=== PATIENT | male | born 1965 | race Caucasian/White ===

== ENCOUNTER 2024-04-17 10:28 | Inpatient (IN) | payer OTHER, SELFPAY ==
[2024-04-17] VITALS (9 sets, daily range): BP systolic 82–134; BP diastolic 58–101; PULSE 100–111; RESP 16–21; TEMP 36.1–37.1; O2SAT 89–100; BMI 28.4
--- NOTE | 2024-04-17 10:29 | PD.EDSYNC ---
ED Syncope RME/HPI General Chief Complaint: Syncope / Near Syncope Stated Complaint: SHOCK Time Seen by Provider: 04/17/24 10:34 Arrival date/time: 04/17/24 10:28 RME / HPI RME / HPI narrative: DR. GAONA MAIN ED EVALUATION: 58 year old male presents to the Emergency Department [facility] from home complaint of syncopal episode, witnessed at home by his mother that lasted about 2-3 minutes. Per EMS, when they arrived patient was more alert but very pale as a ghost. Per EMS, blood pressure was 60/40 and satting at 89% on room air. En route per EMS, GCS of 15. No fever or chills reported, here 98 F rectally. Blood glucose 294 here. Here blood pressure at arrival was 82/58. Patient was incontinent, has brown stools over his clothes. PMHx: Hypercholesterolemia, anxiety, TIA and diabetes. No known allergies. Social Hx: No tobacco, alcohol, or substance use. Related Data Home Medications ?Medication ?Instructions ?Recorded ?Confirmed Propranolol Hcl 40 mg PO DAILY ##0 06/15/12 dextromethorphan polistirex 30 30 mg PO Q12HR PRN COLD SYMPTOMS 03/14/13 mg/5 mL oral susp ext.release 12hr ##0 (Delsym) metformin 1,000 mg tablet 500 mg PO BIDWM Diabetes #0 tabs 03/14/13 (Glucophage) propranolol 10 mg tablet 60 mg PO HS 05/15/20 05/15/20 Previous Rx's ?Medication ?Instructions ?Recorded lorazepam 1 mg tablet 1 mg PO QDAY PRN anxiety #4 tabs 09/21/20 Allergies Allergy/AdvReac Type Severity Reaction Status Date / Time guaifenesin (From Robitussin) Allergy Severe Swelling Verified 04/17/24 10:39 of Lip/Tongue/Throat Review of Systems Review of Systems Systems Reviewed: All systems reviewed, normal except as documented Narrative Review of Systems: GEN: No fever, no chills, no weight loss EYES: No discharge, no visual changes, no pain HEENT: No ear pain, no congestion, no sore throat PULM: No shortness of breath, no cough, no congestion CV: No chest pain, no dyspnea on exertion, no palpitations GI: No nausea, no vomiting, no diarrhea, no pain, no constipation : No frequency, no urgency and no dysuria MUSC/SKEL: No joint pain, no back pain SKIN: No rash PSYCH: No hallucinations, no depression HEME/LYMPH: No easy bleeding or bruising tendencies NEURO: No weakness, no headache, + syncopal episode (see HPI) Past Medical History Past Medical History NEUROLOGIC: Positive Transient Ischemic Attacks (TIA) and Multiple Sclerosis (QUESTIONABLE MS PER MRI IN 2004?) CARDIAC: Positive Hypertension ENDOCRINE: Positive Diabetes Mellitus Type 2 PSYCHO/SOCIAL: Positive Anxiety Social History SMOKING STATUS: Never smoker SUBSTANCE USE: does not use ALCOHOL: Never ED Exam Narrative Physical exam: GENERAL APPEARANCE: alert and oriented x 4, well-developed, well-nourished, no acute distress VITALS: All vitals were reviewed and the pulse ox is % on room air, which is normal according to my interpretation. HEENT: Normocephalic, atraumatic; pupils equal, round, reactive to light; EOMI; mucous membranes pink, moist; oropharynx clear NECK: Supple LUNGS: CTABL; no wheezes, no rales, no rhonchi HEART: Regular rate, regular rhythm; normal S1, S2; no murmurs ABDOMEN: non distended; normal BS; soft, no tenderness, no guarding, no rebound; no masses, no organomegaly, no hernia BACK: no CVA tenderness EXTREMITIES: atraumatic; no edema NEUROLOGIC: awake; alert and oriented x4; cranial nerves II-XII grossly intact; no focal sensory or motor deficits PSYCHIATRIC: appropriate mood and affect SKIN: warm, dry, normal color; no rashes Course Quality Measures none Orders Category Date Time Status Bedside COVID-19 Antigen Test NOW Care 04/17/24 10:37 Active Bedside COVID-19 Antigen Test NOW Care 04/17/24 11:29 Completed Bedside Influenza A&B Antigen Test NOW Care 04/17/24 10:37 Completed Bedside Influenza A&B Antigen Test NOW Care 04/17/24 11:29 Completed COVID-19 Screening Questionnaire NOW Care 04/17/24 14:13 Active Pressure Sealer And Tester NOW Care 04/17/24 10:37 Active Decision to Admit X1 Care 04/17/24 14:13 Completed EKG (ED ONLY) *Do not use* NOW Care 04/17/24 10:[address] head/brain wo con Stat Exams 04/17/24 11:32 Completed EKG (ED Only) Stat Exams 04/17/24 10:37 Draft XR chest 1V portable Stat Exams 04/17/24 10:37 Completed A1C [Glycohemoglobin w (eAG)] Stat Lab 04/17/24 10:50 Completed Alcohol, Blood Medical Stat Lab 04/17/24 10:50 Completed B-Type Natriuretic Peptide Stat Lab 04/17/24 10:50 Completed CBC Stat Lab 04/17/24 10:50 Completed Comprehensive Metabolic Panel Stat Lab 04/17/24 10:50 Completed Drug Screen,Urine Stat Lab 04/17/24 12:48 Completed Lipase Stat Lab 04/17/24 10:50 Completed Magnesium Stat Lab 04/17/24 10:50 Completed Partial Thromboplastin Time Stat Lab 04/17/24 10:50 Completed Prothrombin Time with INR Stat Lab 04/17/24 10:50 Completed Troponin I Stat Lab 04/17/24 10:50 Completed UA, C/S IF [Urinalysis, C/S if Indicated] Stat Lab 04/17/24 12:48 Completed Aspirin Chew Med 04/17/24 14:51 Discontinued 324 mg PO X1 ONE Sodium Chloride 0.9% 1000 ml [Ns] 1,000 ml Med 04/17/24 11:28 Discontinued IV 999 mls/hr Vital Signs Vital signs: Vital Signs Temperature 98.8 F 04/17/24 10:35 Pulse Rate 110 H 04/17/24 10:35 Respiratory Rate 17 04/17/24 10:35 Blood Pressure 82/58 L 04/17/24 10:35 Pulse Oximetry (%) 94 L 04/17/24 10:35 Oxygen Delivery Method Oxy Mask 04/17/24 10:35 Oxygen Flow Rate 5 04/17/24 10:35 Syncope MDM Narrative MDM Narrative:: IStella am scribing for and in the presence of Dr. Gaona. Patient data External records reviewed:: [facility] previous records (Reviewed last ED visit dated 10/10/20 discharged with the following: Anxiety) and EMS form Clinical information provided by:: patient, EMS and family Social determinants that could affect healthcare access:: none Patient has the following chronic illnesses:: Hypercholesterolemia, anxiety, TIA and diabetes. No known allergies. How is presenting disease/condition affected by chronic disease/condition?: exacerbated by Evaluation data The following diagnostics were reviewed and interpreted by me:: lab results, radiology exam(s) and EKG tracing(s) (EKG#1: EKG at 1041 hours. Interpreted by me: sinus tachycardia, rate 109) Lab and/or radiology exams considered but not ordered:: none Interpretation Summary: Elevated troponin, 0.100. RADIOLOGY Procedure(s): CT head/brain wo con Accession Number(s): [id number] cc: Humphrey Rudd MD; NO PRIMARY/FAMILY,PHYSICIAN; Nayely Gaona MD~ Examination: CT brain head without contrast. 2-D sagittal coronal reconstructions Date and time of exam:April 17, 2024 1335 hrs. Comparison October 09, 2020 Indications: Onset syncopal episode beginning this morning CTDI: vol (mGy):49.1 DLP: (mGycm):1002 Technique: Multiple CT axial sections of the brain have been obtained, 5 mm slice thickness. Contrast has not been administered. 2-D sagittal, coronal reconstructions have been obtained Low dose protocols were performed. One or more of the following dose reduction techniques were used; automated exposure control, adjustment of the mA and/or KV according to patient size, use of iterative reconstruction technique. Findings: No significant ventricular enlargement. Intra-axial or extra-axial hemorrhage density is not seen. No mass effect or midline shift Basal cisterns are not remarkable. Fourth ventricle is midline. Cranial vault intact. Fairly prominent chronic microvascular white matter change Impression: Negative for acute hemorrhage, mass effect or midline shift Clinical correlation advised and follow-up accordingly Dictated By: Humphrey Rudd MD Procedure(s): XR chest 1V portable Accession Number(s): [id number] cc: Humphrey Rudd MD; NO PRIMARY/FAMILY,PHYSICIAN; Nayely Gaona MD~ Examination: AP chest single view Technique: AP portable semiupright chest single view Exam date and time: April 17, 2024 at 10:58 AM Indications: Chest pain today. Findings: Normal heart size No pneumonia or pulmonary edema Mild osteopenia Impression: No active disease Dictated By: Humphrey Rudd MD Medications / Prescriptions Medications or Prescriptions considered but not ordered:: none Medication administrations:: Medication Administration History Acetaminophen (Acetaminophen 325 Mg Tablet) 650 mg PO Q6H PRN PRN Reason: Fever >100 or pain 1-3 Stop: 05/17/24 15:26 Hydrocodone Bitart/Acetaminophen (Hydrocodone/Apap 5/325 Tablet) 1 tab PO Q4HR PRN PRN Reason: PAIN SCALE 4-6 (Moderate Stop: 04/22/24 15:26 Dextrose (Dextrose 50%-Water Inj 50 Ml Syringe) 25 ml IV Q15MIN PRN PRN Reason: BG 50-70 responsive npo pt Stop: 05/17/24 15:26 Dextrose (Dextrose 50%-Water Inj 50 Ml Syringe) 50 ml IV Q15MIN PRN PRN Reason: BG <50 OR BG <70 & pt unresponsive Stop: 05/17/24 15:26 Glucagon (Glucagon Inj 1 Mg Vial) 1 mg IM Q15MIN PRN PRN Reason: BG <70, and no IV access Heparin Sodium (Porcine) (Heparin Sod Inj 5000 Unit/Ml Vial) 5,000 unit SC Q12HR FINN Stop: 05/01/24 15:29 Last Admin: 04/17/24 16:07 Dose: 5,000 unit Documented By: AA Co-signed By: LIDA Magnesium Sulfate (Magnesium Sulfate Ivpb) 2 gm in 50 mls @ 25 mls/hr IV X1 ONE Stop: 04/17/24 18:00 Last Admin: 04/17/24 16:20 Dose: 25 mls/hr Documented By: YUSUF Sodium Chloride (Ns) 1,000 mls @ 75 mls/hr IV .[id number] [facility] Stop: 04/18/24 05:23 Last Admin: 04/17/24 16:15 Dose: 75 mls/hr Documented By: YUSUF Insulin Human Lispro (Insulin Lispro (Admelog) 1 Unit/0.01 Ml Unit) 0 unit SC AC [facility]; Protocol Stop: 05/17/24 16:59 Ipratropium [place] (Ipratropium Rt 0.5 Mg/ 2.5 Ml Nebu) 0.5 mg INH Q2HR PRN PRN Reason: SHORTNESS OF BREATH OR WHEEZE Stop: 05/17/24 15:24 Ondansetron HCl (Ondansetron Inj 2 Mg/Ml Inj 2 Ml) 4 mg IV Q6H PRN; Protocol PRN Reason: NAUSEA OR VOMITING Stop: 05/17/24 15:26 Discontinued Medications Aspirin (Aspirin 81 Mg Chew) 324 mg PO X1 ONE Stop: 04/17/24 14:52 Last Admin: 04/17/24 16:07 Dose: 324 mg Documented By: YUSUF Sodium Chloride (Ns) 1,000 mls @ 999 mls/hr IV .Q1H1M ONE Stop: 04/17/24 12:28 Last Infusion: 04/17/24 12:46 Dose: Infused Documented By: Admin: 04/17/24 11:45 Dose: 999 mls/hr Documented By: YUSUF Pantoprazole Sodium (Pantoprazole Inj 40 Mg Vial) 40 mg IVP X1 ONE Stop: 04/17/24 15:37 Last Admin: 04/17/24 16:08 Dose: 40 mg Documented By: YUSUF see above Consultations Consultation(s) initiated? (list below): Yes Consultation #1 (Physician, Specialty, Details): Discussed test HPI, PMHx, lab, radiology results and/or management with hospitalist. Will admit for further evaluation and management. Accepts patient for admission. Time: 14:00 Diagnosis Syncope Differential Diagnosis: syncope due to orthostatic hypotension, vasovagal syncope and dehydration Most likely diagnosis given after review of the tests above:: Hypotension Elevated troponin Syncopal episode Admission Indicated Admission indicated?: indicated Admission Request Was there a request for admission?: Yes Admission Attestation Admission request attestation: Discussed case with [] from Hospitalist service regarding admission. Discussed patients ED course, exam findings, labs, and radiology results. The Hospitalist [agrees,declines] to accept the patient for admission. Disposition Plan Disposition Plan: Admit Discharge Plan Plan Patient Disposition: Admit Acute Care w/in Hospital Problem List Clinical Impression: Hypotension, Elevated troponin, Syncopal episodes
--- NOTE | 2024-04-17 10:37 | EKG_ITS ---
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
--- NOTE | 2024-04-17 10:37 | XR_ITS ---
Examination: AP chest single view Technique: AP portable semiupright chest single view Exam date and time: April 17, 2024 at 10:58 AM Indications: Chest pain today. Findings: Normal heart size No pneumonia or pulmonary edema Mild osteopenia Impression: No active disease
[2024-04-17 11:02] LABS: Basophils # (Auto) 0.1 Thou/mm3 (0.0-0.2); Basophils % (Auto) 0 % (0-2.5); Eosinophils # (Auto) 0.2 Thou/mm3 (0.0-0.5); Eosinophils % (Auto) 1 % (0-10); Hematocrit 43.9 % (41.0-53.0); Hemoglobin 14.4 g/dL (13.5-16.0); Immature Granulocytes % (Auto) 1 % (0-0); Immature Granulocytes Auto 0.19 Thou/mm3 (0.00-0.00); Lymphocytes # (Auto) 2.4 Thou/mm3 (1.0-4.8); Lymphocytes % (Auto) 13 % (10-50); Mean Corpuscular HGB Conc 32.8 g/dl (31.0-37.0); Mean Corpuscular Hemoglobin 28.6 pg (25.0-35.0); Mean Corpuscular Volume 87 fL (80-100); Monocytes # (Auto) 0.8 Thou/mm3 (0.0-0.8); Monocytes % (Auto) 4 % (0-12); Neutrophils # (Auto) 15.2 Thou/mm3 (1.8-7.7); Neutrophils % (Auto) 80 % (37-80); Nucleated Red Blood Cell % 0 /100 WBC (0); Platelet Count 221 Thou/mm3 (140-440); RDW Standard Deviation 45.1 fL (35.1-43.9); Red Blood Count 5.04 Miln/mm3 (4.50-5.90); White Blood Count 18.9 Thou/mm3 (3.8-10.6)
[2024-04-17 11:15] LABS: B-Type Natriuretic Peptide < 20 pg/mL (0-100)
--- NOTE | 2024-04-17 11:17 | PC.NURSE ---
Patient to presents to ED via ambulance from home with c/o witnessed syncope episode at home by mother. Patient also hypotensive on site BP of 60/40, blood sugar 348, IVF 200ml infused by district recruiter. Patient was incontinent of urine and stool, patient denies hx of seizures/ activity. Patient stated attempted to get out of bed and past out, does not recall events prior and did c/o headache and nausea now. Patient updated with plan of care and call light is placed within reach.
[2024-04-17 11:18] LABS: Alanine Aminotransferase 32 U/L (10-49); Albumin/Globulin Ratio 1.4 (1.2-2.2); Alcohol, Blood Medical < 3.0 mg/dL (0-10.0); Alkaline Phosphatase 116 U/L (46-116); Anion Gap 12 (7-16); Aspartate Amino Transferase 26 U/L (0-34); BUN/Creatinine Ratio 10 Ratio (12-20); Bilirubin,Total 0.5 mg/dL (0.3-1.2); Blood Urea Nitrogen 15 mg/dL (9-23); Calcium 8.6 mg/dL (8.3-10.6); Calcium (Corrected) 8.6 mg/dL (8.5-10.1); Carbon Dioxide 19.3 mMol/L (20.0-31.0); Chloride 107 mMol/L (98-107); Creatinine (Component) 1.5 mg/dL (0.6-1.3); Estimated Creatinine Clearance 61.3 mL/min (>60); Globulin 2.8 gm/dL (2.3-3.5); Glucose 384 mg/dL (74-106); Lipase 41 U/L (12-53); Magnesium 1.7 mg/dL (1.6-2.6); Osmolality,Calculated 292 (275-295); Potassium 4.6 mMol/L (3.4-5.1); Sodium 138 mMol/L (136-145); Total Protein 6.8 gm/dL (5.7-8.2); eGFR 54 See Note
[2024-04-17 11:19] LABS: Partial Thromboplastin Time 22.4 Seconds (22.0-36.0); Prothrombin Time 11.1 Seconds (9.0-12.2)
--- NOTE | 2024-04-17 11:32 | XR_ITS ---
Examination: CT brain head without contrast. 2-D sagittal coronal reconstructions Date and time of exam:April 17, 2024 1335 hrs. Comparison October 09, 2020 Indications: Onset syncopal episode beginning this morning CTDI: vol (mGy):49.1 DLP: (mGycm):1002 Technique: Multiple CT axial sections of the brain have been obtained, 5 mm slice thickness. Contrast has not been administered. 2-D sagittal, coronal reconstructions have been obtained Low dose protocols were performed. One or more of the following dose reduction techniques were used; automated exposure control, adjustment of the mA and/or KV according to patient size, use of iterative reconstruction technique. Findings: No significant ventricular enlargement. Intra-axial or extra-axial hemorrhage density is not seen. No mass effect or midline shift Basal cisterns are not remarkable. Fourth ventricle is midline. Cranial vault intact. Fairly prominent chronic microvascular white matter change Impression: Negative for acute hemorrhage, mass effect or midline shift Clinical correlation advised and follow-up accordingly
[2024-04-17] MEDS: SODIUM CHLORIDE 0.9% 1000 ML 1,000 ML 999 ML IV (11:45)
[2024-04-17 13:32] LABS: Collection Type, Urine Clean Catch
[2024-04-17 13:43] LABS: Bacteria,Urine Rare; Bilirubin,Urine Negative (Negative); Blood,Urine Negative (Negative); Clarity,Urine Clear (Clear/Hazy); Color,Urine Lt-Yellow (Lt Yel-Yel); Culture Indicated,Urine Not Indicated; Glucose, Urine 3+ (Negative); Hyaline Casts,Urine < 1 /hpf (0-1); Ketones,Urine Negative (Negative); Leukocyte Esterase,Urine Negative (Negative); Nitrite,Urine Negative (Negative); Protein,Urine 1+ (Neg - Trace); RBC,Urine 3 /hpf (0-3); Specific Gravity,Urine 1.011 (1.001-1.035); Squamous Epithelial Cell,Urine < 1 /hpf (0-5); Urobilinogen,Urine Negative mg/dL (0.0-1.0); WBC,Urine 6 /hpf (0-5)
[2024-04-17 13:48] LABS: Amphetamine/Methamp Scrn,U Negative (Negative); Barbiturate Screen,Urine Positive (Negative); Benzodiazepines Screen,Urine Negative (Negative); Benzoylecgonine Screen, Ur Negative (Negative); Fentanyl Screen,Urine Negative (Negative); Opiate Screen,Urine Negative (Negative); THC Screen,Urine Negative (Negative)
[2024-04-17 13:51] LABS: Glucose Estimated Average 180 mg/dL (80-131); Hemoglobin A1C 7.9 % Hgb (4.8-6.0)
--- NOTE | 2024-04-17 15:28 | ECHO_ITS ---
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 16 - 28 cm?/m? M-MODE Aortic Root Diameter MM 2.8 cm LA Systolic Diameter MM 3.6 cm LA Ao Ratio MM 1.3 AV Cusp Separation MM 1.9 cm DOPPLER AV Peak Velocity 100.0 cm/s AV Peak Gradient 4.0 mmHg AV Mean Gradient 2.0 mmHg AV Velocity Time Integral 17.7 cm LVOT Peak Velocity 76.9 cm/s LVOT Peak Gradient 2.4 mmHg LVOT Velocity Time Integral 17.0 cm LVOT Cardiac Index 1627.7 cm?/min?m? AV Area Cont Eq vti 2.4 cm? AV Area Cont Eq pk 1.9 cm? MV Area PHT 5.0 cm? Mitral E Point Velocity 53.4 cm/s Mitral A Point Velocity 64.0 cm/s Mitral E to A Ratio 0.8 LV E' Lateral Velocity 8.7 cm/s Mitral E to LV E' Lateral Ratio 6.1 LV E' Septal Velocity 9.7 cm/s Mitral E to LV E' Septal Ratio 5.5 TR Peak Velocity 189.0 cm/s TR Peak Gradient 14.3 mmHg PV Peak Velocity 84.2 cm/s PV Peak Gradient 2.8 mmHg FINDINGS Left Ventricle Normal left ventricular size, wall thickness, systolic function with no obvious regional wall motion abnormalities. Normal left ventricular diastolic filling pattern for age. The ejection fraction is visually estimated at 55-60 %. Right Ventricle The right ventricle is normal in size and systolic function. Left Atrium The left atrium is normal by two-dimensional, color flow and Doppler imaging with no structural abnormalities, no thrombus formation present. Right Atrium The right atrium is normal by two-dimensional imaging, color flow and Doppler imaging with no structural abnormalities, no thrombus formation present. Atrial Septum The interatrial septum appears normal with no evidence of a shunt. Aorta The aorta is normal by two-dimensional, color flow and Doppler interrogation. Mitral Valve The mitral valve is normal by two-dimensional, color flow and Doppler interrogation. There is trace mitral valve regurgitation, stenosis or prolapse. Aortic Valve The aortic valve is trileaflet and normal by two-dimensional, color flow and Doppler interrogation. There is no significant aortic valve regurgitation. Tricuspid Valve The tricuspid valve is normal by two-dimensional, color flow and Doppler interrogation. There is trace tricuspid valve regurgitation. Pulmonic Valve The pulmonic valve is not well visualized. There is no significant pulmonic valve regurgitation. Vessels The pulmonary artery appears normal. The inferior vena cava pulmonary and hepatic veins appear normal. Pericardium The pericardium is normal by two-dimensional imaging. There is no significant pericardial effusion. CONCLUSIONS Indication: Syncope Normal LV size and function. Estimated EF 55-60 %. Mildy dilated RV and normal RV systolic function. Trace MR and TR. Paco Chapin (Electronically Signed) Final Date: 18 April 2024 13:37
--- NOTE | 2024-04-17 15:33 | PD.RESHP ---
Documentation for date of: 04/17/24 HPI History of Present Illness History of present illness: Tony is a 58-year-old male with a past medical history of [id number] diabetes type 2, previous syncope, panic disorder, hyperlipidemia who is here at [facility] on 04/17/2024 for an evaluation of syncopal episode. Patient reports that he woke up this morning and he went to go have a bowel movement after breakfast and says that while he left the bathroom he started to get dizzy. He says the next thing he knew that he was on the floor and that there was a bunch of EMS personnel around him. Patient does endorse a history of study and syncope, last time this happening was about 10 years ago. He also endorses that he had an episode 1 time in which she fell and passed out while walking on the sidewalk. Denies a history of sudden cardiac in family history. He says that he has had a previous cardiac workup including stress test which was negative and Holter monitoring which was negative as well. He does say he takes a number of medicines but is unable to remember which ones he takes including some for anxiety. He endorses not having a lot of oral intake lately, skye that he has not ate this morning. He says he is unsure why he passed out. He denies having a history of cardiac murmurs or arrhythmias. He denies anyone in his family having similar symptoms to this. He does say he has tremors constantly. He says that when he fell he also hit his head and scraped up his knee. Says his bowel movements are regular and has some daily. Denies recent travel anywhere. Endorses some rib pain from his fall. ED course: He arrived to the ED with a blood pressure of 82/58, heart rate of 110, afebrile, respiratory rate of 17, and was saturating 89% per EMS. She was worked up and was found to have sodium of 138, potassium 4.6, BUN/creatinine 15 and 1.5 respectively, glucose 384, hemoglobin 14, white count 19, magnesium 1.7, AST ALT 26 and 32 respectively, troponin 0.1, BMP unremarkable, urine showed +3 glucose and 6 white cells, U tox showed barbiturates. Head CT was unremarkable for acute hemorrhage, mass effect or midline shift. Chest x-ray was negative pulmonary edema or pneumonia. EKG did show sinus tachycardia rate of 109. He was put on oxygen mask, given ASA 325, 1 L bolus. Medicine was consulted and patient was admitted to floors. Past medical history: As above Surgeries: Some knee operation possible repair of meniscus or ligament Allergies: Robitussin Meds: Patient is unsure of what medicines he takes, he endorses not taking propranolol, however he does take medicines for anxiety, takes metformin and some form of a statin Family history: Dad of lung cancer and heart attack at some point when he was 78. His mother is healthy and still living at 88 with no medical problems. He says diabetes runs in part of his family. He says his aunt had a stroke. No other medical history Social history: Born in [facility] [place]. Lived throughout the [place] lived in [place] at some point and then moved back to [place]. 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 He got at some point for 4 years and is not currently. Has no kids. Has chewed tobacco since he was 13, however quit for 4 years when he was . He said he used to use a can a day. He has used cocaine before in the past 1-2 times in the 90s. Has not drink alcohol since 2010 when he was diagnosed with diabetes. He smokes cigarettes at some point but mainly chewed tobacco. Review of Systems Review of Systems Narrative Review of Systems: Constitutional: No fever, chills, fatigue, weakness, weight loss HEENT: No eye pain, vision loss, ear pain, hearing loss, dysphagia, Cardiovascular: No chest pain, palpitations, edema, pain with walking Respiratory: No cough, shortness of breath, wheezing GI: No NVD, abdominal pain, constipation, blood in stool, loss of appetite, heartburn Extremities: No presence of pitting edema MSK: No back pain, joint pain, joint swelling, + Rib pain Neuro: No dizziness, numbness, weakness, headaches, seizures, positive, positive for syncope tremors Psych: +anxiety Exam Vital Signs Temp Pulse Resp BP Pulse Ox O2 Del Method O2 Flow Rate 98.8 F 109 H 19 130/81 99 Oxy Mask 4 04/17/24 13:44 04/17/24 13:44 04/17/24 13:44 04/17/24 13:44 04/17/24 13:44 04/17/24 13:44 04/17/24 13:44 Narrative Exam General: AAOx3, anxious male, multiple tattoos present on his body including his leg back and arm HEENT: Dry mucous membranes, conjunctiva clear, EOMI, PERRLA, pupillary reflex intact bilaterally, poor dentition likely related to tobacco chewing Cardiovascular: S1, S2, radial pulses +2 bilat, Tachycardia Pulmonary: CTAB bilat no cough, no wheezing GI: No tenderness to light or deep palpitation, no guarding, rigidity, rebound tenderness or distension Extremities: No presence of trace or pitting edema in lower extremities bilaterally, dorsalis pedis pulses +2 bilaterally, leg tattoo Neuro: AAOx3, pupillary reflex intact bilaterally resting tremor present Psych: Anxious Results: Labs 04/18/24 05:30 04/18/24 05:30 Labs: Short CBC 04/17/24 Range/Units 10:50 WBC 18.9 H (3.8-10.6) Thou/mm3 Hgb 14.4 (13.5-16.0) g/dL Hct 43.9 (41.0-53.0) % Plt Count 221 (140-440) Thou/mm3 BMP 04/17/24 10:50 Sodium 138 Potassium 4.6 Chloride 107 Carbon Dioxide 19.3 L BUN 15 Creatinine 1.5 H Glucose 384 H Calcium 8.6 Cardiac Enzymes 04/17/24 Range/Units 10:50 Troponin I 0.100 H* (0.0-0.045) ng/mL Liver Function 04/17/24 Range/Units 10:50 Total Bilirubin 0.5 (0.3-1.2) mg/dL AST 26 (0-34) U/L ALT 32 (10-49) U/L Alkaline Phosphatase 116 (46-116) U/L Albumin 4.0 (3.5-5.0) gm/dL Urine 04/17/24 Range/Units 12:48 Urine Color Lt-Yellow (Lt Yel-Yel) Urine Clarity Clear (Clear/Hazy) Urine pH 6.0 (5.0-7.0) Ur Specific [place] 1.011 (1.001-1.035) Urine Protein 1+ A (Neg - Trace) Urine Glucose (UA) 3+ A (Negative) Quality Measures Quality Measures none Medications Home Medications and Allergies Home Medications ?Medication ?Instructions ?Recorded ?Confirmed ?Type Propranolol Hcl 40 mg PO DAILY ##0 06/15/12 History dextromethorphan polistirex 30 30 mg PO Q12HR PRN COLD SYMPTOMS 03/14/13 History mg/5 mL oral susp ext.release 12hr ##0 (Delsym) metformin 1,000 mg tablet 500 mg PO BIDWM Diabetes #0 tabs 03/14/13 History (Glucophage) propranolol 10 mg tablet 60 mg PO HS 05/15/20 05/15/20 History Allergies Allergy/AdvReac Type Severity Reaction Status Date / Time guaifenesin (From Robitussin) Allergy Severe Swelling Verified 04/17/24 10:39 of Lip/Tongue/Throat Visit Medications Discontinued Medications Aspirin (Aspirin 81 Mg Chew) 324 mg PO X1 ONE Stop: 04/17/24 14:52 Sodium Chloride (Ns) 1,000 mls @ 999 mls/hr IV .Q1H1M ONE Stop: 04/17/24 12:28 Last Infusion: 04/17/24 12:46 Dose: Infused Assessment & Plan Plan Assessment Tony is a 58-year-old male with a past medical history of iev-iteniev-sckemdylc diabetes type 2, previous syncope, panic disorder, hyperlipidemia who is admitted for syncopal episode. #Syncope #History of previous syncope DDx: Hypovolemia, orthostatic hypotension, cardiac arrhythmia, POTS, aortic stenosis, vasovagal, medication side effect Patient says that he has a history of syncope and has randomly passed out before Denies history of sudden cardiac in family Also says that he has seen a food truck caterer before and has had a negative stress test and a normal Holter Patient does not know exactly what medicines he arms, however he is tested positive for barbiturates Patient does take a number of medicines including some better psych related, could be medicine side effect Patient does seem to be a bit volume depleted in addition to having an MATTIE so hypovolemia could be a cause of this EKG does show sinus tach, compensatory response to hypotension Patient did experience hypotension as low as 60 systolic while in the ER and EMS Was not able to appreciate cardiac murmur on physical exam Patient would likely benefit from loop recorder outpatient Plan: ? Cardio consulted, appreciate recs ? Echo ? Keep magnesium and potassium above 2 and 4 respectively ? Orthostatic vitals ? Holding on resuming psych meds at this time ? Neurology consult #Elevated Troponin DDx: NSTEMI type I vs II Patient denies having chest pain Likely related to demand ischemia, however will continue to trend Denies history of previous cardiac arrest, ischemic heart disease Initial troponin 0.1 Plan: ?Continue to trend troponin every 6 hours until they peak #MATTIE DDx: Prerenal, intrinsic, postrenal Likely patient is experiencing prerenal as creatinine is 1.5 baseline seems to be 0.7 Seems to be dehydrated, was given 1 L in ER Plan: ? Urine sodium and creatinine ? Encourage oral intake ? 1 bag NS 75 cc an hour ? Avoid nephrotoxic agents ? Renally dose medicines #Zmd-iufsqse-lromouaxu diabetes type 2 Plan: ? A1c ? SSI ? Hypoglycemic protocol in place ? Blood glucose checks A with meals #Hyperlipidemia Plan: ? Follow-up lipid panel ? Follow-up with med rec to start home medicine #History of panic disorder #? History of PTSD U tox shows positive barbiturates Plan: ? Will consider giving something for sleep, and also will wait for patient to have his med rec #Health Maintenance Disposition: Telemetry DVT prophylaxis: Heparin every 12 hours GI prophylaxis: Protonix Diet: Carb low CODE STATUS: Full Patient seen and care discussed with my senior resident, Dr. Maravilla, and my attending physician, Dr. John Iverson, PGY-1 Attending Provider Attestation/Addendum I reviewed labs, imaging, EKG, home medications and prior available records. Face to face evaluation was performed by me. I have personally examined the patient and discussed assessment and plan with the IM team. I reviewed the resident note and agree with the plan with exceptions as below. Syncope Acute hypotension Non-STEMI MATTIE Leukocytosis, possibly reactive in the setting of dehydration Ordered CT head: Negative for acute changes Hold psych medications Continue IV hydration Obtain echocardiogram Trend troponin Obtain orthostatic vital signs Consult cardiology given the possible cardiac causes and elevated troponin Consult neurology given the possible neurologic syncope in setting of seizure Monitor kidney function. Avoid nephrotoxins. Renally dosed medications Trend WBC
[2024-04-17] MEDS: ASPIRIN 81 MG CHEW 324 MG PO (16:07)
[2024-04-17] MEDS: HEPARIN SOD INJ 5000 UNIT/ML VIAL SC (16:07)
[2024-04-17] MEDS: PANTOPRAZOLE INJ 40 MG VIAL IVP (16:08)
[2024-04-17] MEDS: SODIUM CHLORIDE 0.9% 1000 ML 1,000 ML 75 ML IV (16:15)
[2024-04-17] MEDS: Magnesium Sulfate 2 GM Ivpb 2 GM/50 ML BAG IV (16:20)
[2024-04-17 16:35] LABS: Cardiac Risk Estimate 3.8 RATIO (4.0-6.7); Cholesterol 107 mg/dL (132-200); HDL Cholesterol 28 mg/dL (40-60); LDL Cholesterol,Calculated 33 mg/dL (0-130); Triglycerides 230 mg/dL (30-150)
[2024-04-17 17:27] LABS: Troponin I 1.712 ng/mL (0.0-0.045)
--- NOTE | 2024-04-17 17:33 | PC.NURSE ---
Report given to Farzaneh TALAVERA, patient will be transferred to room 262.
--- NOTE | 2024-04-17 17:46 | ESCONSULT_ITS ---
HPI Data of Consult Consult date: 04/17/24 Requesting Physician: Remy Lopez MD Primary Care Provider: Physician No Primary/Family Consult Narrative Reason for consult: Syncope History of present illness: A 58-year-old male with a past medical history of type 2 diabetes mellitus uncontrolled, essential hypertension, hyperlipidemia, anxiety, panic disorder, history of tremors, depression presented to the emergency department for further patient was seen after an episode of syncope. As per patient he was doing well until this morning when he woke up in the due to his monitors and went to the restroom for bowel movement. After he finishes bowel movement patient stood up and walked towards his bedroom and after a few steps he felt slightly dizzy but immediately passed out and the next thing he could remember was known people around him. He did hurt his knee, back probably in the fall but does not remember anything else. History definitely concerning for syncope. Patient apparently had 1 episode of syncope 10 to 15 years ago almost but has not did but the exact details of his syncope. Patient did have some workup done by cardiology including stress test and a Holter test which was apparently negative. Also patient is on anxiety medications along with couple of other medications for depression and also tremors. Patient denies any chest pain chest pressure or shortness of breath orthopnea or PND any kind of palpitations. Any recurrent fever or chills or nausea or vomiting. Upon further questioning patient has been not been taking good care of his diabetes recently and has increased frequency of urination over the last few weeks and urinates more than 12 or does not times a day. His blood sugars on arrival was also elevated in the range of 384. Patient was also hypertensive on arrival with a blood pressure of 82/58 mmHg and heart rate of 120 bpm indicating the patient probably was dehydrated. Rest of the history from the excellent documentation of Dr. Alexandra davenport ED course: He arrived to the ED with a blood pressure of 82/58, heart rate of 110, afebrile, respiratory rate of 17, and was saturating 89% per EMS. She was worked up and was found to have sodium of 138, potassium 4.6, BUN/creatinine 15 and 1.5 respectively, glucose 384, hemoglobin 14, white count 19, magnesium 1.7, AST ALT 26 and 32 respectively, troponin 0.1, BMP unremarkable, urine showed +3 glucose and 6 white cells, U tox showed barbiturates. Head CT was unremarkable for acute hemorrhage, mass effect or midline shift. Chest x-ray was negative pulmonary edema or pneumonia. EKG did show sinus tachycardia rate of 109. He was put on oxygen mask, given ASA 325, 1 L bolus. Medicine was consulted and patient was admitted to floors. Past medical history: As above Surgeries: Some knee operation possible repair of meniscus or ligament Allergies: Robitussin Meds: Patient is unsure of what medicines he takes, he endorses not taking propranolol, however he does take medicines for anxiety, takes metformin and some form of a statin Family history: Dad of lung cancer and heart attack at some point when he was 78. His mother is healthy and still living at 88 with no medical problems. He says diabetes runs in part of his family. He says his aunt had a stroke. No other medical history Social history: Born in [facility] [place]. Lived throughout the [place] lived in [place] at some point and then moved back to [place]. 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 He got at some point for 4 years and is not currently. Has no kids. Has chewed tobacco since he was 13, however quit for 4 years when he was . He said he used to use a can a day. He has used cocaine before in the past 1-2 times in the 90s. Has not drink alcohol since 2010 when he was diagnosed with diabetes. He smokes cigarettes at some point but mainly chewed tobacco. cc:: cc: Remy Lopez MD Review of Systems Review of Systems Systems Reviewed: All systems reviewed, normal except as documented Meds Home Medications and Allergies Home Medications ?Medication ?Instructions ?Recorded ?Confirmed ?Type Propranolol Hcl 40 mg PO DAILY ##0 06/15/12 History dextromethorphan polistirex 30 30 mg PO Q12HR PRN COLD SYMPTOMS 03/14/13 History mg/5 mL oral susp ext.release 12hr ##0 (Delsym) metformin 1,000 mg tablet 500 mg PO BIDWM Diabetes #0 tabs 03/14/13 History (Glucophage) propranolol 10 mg tablet 60 mg PO HS 05/15/20 1 History Allergies Allergy/AdvReac Type Severity Reaction Status Date / Time guaifenesin (From Robitussin) Allergy Severe Swelling Verified 04/17/24 10:39 of Lip/Tongue/Throat Exam Vital Signs Temp Pulse Resp BP Pulse Ox O2 Del Method O2 Flow Rate 98.3 F 110 H 18 118/98 H 98 Nasal Cannula 1 04/17/24 16:09 04/17/24 16:09 04/17/24 16:09 04/17/24 16:09 04/17/24 16:09 04/17/24 16:09 04/17/24 16:09 Narrative Exam General: Alert and oriented x3. In no acute distress.obese Eyes: Pupils are equal and reactive to light bilaterally. HEENT: Atraumatic, normocephalic. No JVD noted. Mucosa moist. oor dentition Cardiovascular: Normal S1 and S2. Normal rate and regular rhythm. No murmurs appreciated. No peripheral pitting edema noted. Respiratory: No respiratory distress. Lungs are clear to auscultation bilaterally. No wheezing or crackles heard. Abdomen: Soft, nontender, nondistended. Skin: No rash. Warm to touch. Musculoskeletal: No gross injuries. Able to move all 4 extremities. Neuro: Alert and oriented x3. No focal neuro deficits. Psych: Normal affect and mood Results Labs 04/17/24 10:50 04/17/24 10:50 Labs: Short CBC 04/17/24 Range/Units 10:50 WBC 18.9 H (3.8-10.6) Thou/mm3 Hgb 14.4 (13.5-16.0) g/dL Hct 43.9 (41.0-53.0) % Plt Count 221 (140-440) Thou/mm3 BMP 04/17/24 10:50 Sodium 138 Potassium 4.6 Chloride 107 Carbon Dioxide 19.3 L BUN 15 Creatinine 1.5 H Glucose 384 H Calcium 8.6 Cardiac Enzymes 04/17/24 04/17/24 Range/Units 10:50 16:52 Troponin I 0.100 H* 1.712 H* D (0.0-0.045) ng/mL Liver Function 04/17/24 Range/Units 10:50 Total Bilirubin 0.5 (0.3-1.2) mg/dL AST 26 (0-34) U/L ALT 32 (10-49) U/L Alkaline Phosphatase 116 (46-116) U/L Albumin 4.0 (3.5-5.0) gm/dL Urine 04/17/24 Range/Units 12:48 Urine Color Lt-Yellow (Lt Yel-Yel) Urine Clarity Clear (Clear/Hazy) Urine pH 6.0 (5.0-7.0) Ur Specific [place] 1.011 (1.001-1.035) Urine Protein 1+ A (Neg - Trace) Urine Glucose (UA) 3+ A (Negative) Assessment and Plan Additional Assessment & Plan Additional Plan: A 58-year-old male with a past medical history of type 2 diabetes mellitus uncontrolled, hyperlipidemia, anxiety, panic disorder, history of tremors, depression presented to the emergency department for further patient was seen after an episode of syncope. 1. Syncope-appears to be vasovagal syncope in the setting of dehydration but will need to rule out all other causes 2. Mildly elevated troponin-mostly NSTEMI type II versus type I 3. Acute kidney injury 4. Uncontrolled diabetes mellitus -possible HONK-hyperosmolar hyperglycemic nonketotic state 5. Hyperlipidemia 6. Obesity 7. Anxiety 8. Depression 9. Tremors Syncope-unclear etiology for the syncope and appears to be vasovagal after bowel movement and also in the setting of hypotension on arrival with a history of uncontrolled diabetes mellitus recently with increased frequency of urination and possible poor oral intake. Will need to rule out other etiologies of the syncope including any arrhythmias and recommend to continue telemetry for now. Patient apparently had some workup with stress test and Holter monitoring as outpatient previously which was negative but was more than 10 years to 15 years ago. Will need to rule out neurogenic and cardiogenic causes of syncope. Unlikely ischemic cause but patient troponins continue to elevate 1.7 from 0.1. Echo ordered to rule out any structural heart abnormalities including any valve or abnormalities causing syncope. Troponin elevation-NSTEMI type I versus type II. Patient troponin was 0.1 which improved to 1.7. Appears to be type II as patient did not have any complaints including any chest pain or chest pressure but did have a syncope. EKG showed sinus tachycardia with minimal ST depression but no other acute ST-T changes suggestive of STEMI. Recommend to start the heparin drip once a CT head is performed and there is no evidence of any hemorrhage and no other contraindications for anticoagulation. Recommend aspirin statin and beta-heather cardioselective. At the cardia ordered to rule out any regional wall motion abnormalities and also evaluate LV function RV function. Patient does have significant cardiac risk factors including diabetes mellitus hyperlipidemia and family history and would need ischemic evaluation to rule out any underlying CAD. Uncontrolled diabetes mellitus type 2 Upon further questioning patient has been not been taking good care of his diabetes recently and has increased frequency of urination over the last few weeks and urinates more than 12 or does not times a day. His blood sugars on arrival was also elevated in the range of 384. Patient was also hypotensive on arrival with a blood pressure of 82/58 mmHg and heart rate of 120 bpm indicating the patient probably was dehydrated. Recommend IV fluids and strict diabetes control including insulin therapy if required. Acute kidney injury-appears to be prerenal from dehydration and hypotension continue IV fluids for now continue to monitor the blood pressure. Management of rest of the medical conditions as per primary team and other consultants. Thank you for the consult and allowing me to participate in the care of the patient. Cardiology will continue to follow. Paco Chapin M.D. Interventional Cardiology
[2024-04-17] MEDS: INSULIN LISPRO (AdmeLOG) 1 UNIT/0.01 ML UNIT SC (18:43)
[2024-04-17 23:51] LABS: Troponin I 1.766 ng/mL (0.0-0.045)
[2024-04-18] VITALS (9 sets, daily range): BP systolic 54–153; BP diastolic 38–113; PULSE 83–107; RESP 14–23; TEMP 36.1–36.7; O2SAT 96–98; BMI 28.8
--- NOTE | 2024-04-18 00:27 | RESP.EEG ---
EEG has been completed and is ready for MD interpretation
[2024-04-18 06:49] LABS: Basophils % (Auto) 0 % (0-2.5); Eosinophils # (Auto) 0.2 Thou/mm3 (0.0-0.5); Eosinophils % (Auto) 2 % (0-10); Hematocrit 39.2 % (41.0-53.0); Hemoglobin 12.9 g/dL (13.5-16.0); Immature Granulocytes % (Auto) 1 % (0-0); Immature Granulocytes Auto 0.05 Thou/mm3 (0.00-0.00); Lymphocytes # (Auto) 1.8 Thou/mm3 (1.0-4.8); Lymphocytes % (Auto) 17 % (10-50); Mean Corpuscular HGB Conc 32.9 g/dl (31.0-37.0); Mean Corpuscular Hemoglobin 28.4 pg (25.0-35.0); Mean Corpuscular Volume 86 fL (80-100); Monocytes # (Auto) 0.7 Thou/mm3 (0.0-0.8); Monocytes % (Auto) 7 % (0-12); Neutrophils # (Auto) 8.1 Thou/mm3 (1.8-7.7); Neutrophils % (Auto) 74 % (37-80); Nucleated Red Blood Cell % 0 /100 WBC (0); Platelet Count 162 Thou/mm3 (140-440); RDW Standard Deviation 43.4 fL (35.1-43.9); Red Blood Count 4.54 Miln/mm3 (4.50-5.90); White Blood Count 10.9 Thou/mm3 (3.8-10.6)
[2024-04-18 07:00] LABS: Alanine Aminotransferase 29 U/L (10-49); Albumin, Serum 3.8 gm/dL (3.5-5.0); Albumin/Globulin Ratio 1.5 (1.2-2.2); Alkaline Phosphatase 103 U/L (46-116); Anion Gap 7 (7-16); Aspartate Amino Transferase 21 U/L (0-34); BUN/Creatinine Ratio 14 Ratio (12-20); Bilirubin,Total 0.4 mg/dL (0.3-1.2); Blood Urea Nitrogen 14 mg/dL (9-23); Calcium 8.3 mg/dL (8.3-10.6); Calcium (Corrected) 8.5 mg/dL (8.5-10.1); Carbon Dioxide 24.4 mMol/L (20.0-31.0); Chloride 111 mMol/L (98-107); Estimated Creatinine Clearance 92.5 mL/min (>60); Globulin 2.5 gm/dL (2.3-3.5); Glucose 179 mg/dL (74-106); Magnesium 1.9 mg/dL (1.6-2.6); Osmolality,Calculated 287 (275-295); Phosphorous 2.2 mg/dL (2.4-5.1); Sodium 142 mMol/L (136-145); Thyroid Stimulating Hormone 0.71 uIU/mL (0.55-4.78); Total Protein 6.3 gm/dL (5.7-8.2); eGFR > 60 See Note
[2024-04-18 07:01] LABS: Prothrombin Time 11.3 Seconds (9.0-12.2)
[2024-04-18 07:10] LABS: Troponin I 0.981 ng/mL (0.0-0.045)
[2024-04-18 07:27] LABS: Glucose Estimated Average 183 mg/dL (80-131)
[2024-04-18] MEDS: NAPH,KPH MBDB 1 PACKET (1.5 GM) 2 PACKET PO (08:17)
[2024-04-18] MEDS: Magnesium Sulfate 1 gm Ivpb 1 GM/100 ML BAG IV (08:17)
[2024-04-18] MEDS: Heparin/D5w 25K 250 ML Ivpb 25,000 UNIT/250 ML BAG 10.029 UNIT IV (08:18)
[2024-04-18] MEDS: ASPIRIN EC 81 MG TABEC PO (08:18)
[2024-04-18] MEDS: METOPROLOL SUCCINATE XL 25 MG TABCR 50 MG PO (08:18)
[2024-04-18] MEDS: INSULIN LISPRO (AdmeLOG) 1 UNIT/0.01 ML UNIT SC ×3 (08:29→17:35)
--- NOTE | 2024-04-18 09:45 | ESPR_ITS ---
Documentation for date of: 04/18/24 Subjective Subjective Interval history: 04/18/2024: Pt examined at bedside today. No acute overnight events, telemetry reviewed, pt had max 116 HR and rate is in 90s-100s. Pt reports he is doing okay, says he slept okay. He still does not remember what medicines he takes at home. He denies having CP, palpitations or SOB. No other complaints at this time. BUN/Cr 14 and 1.0 respectively, potassium 4, mg 1.9, wbc 11, hgb 13. blood pressure stable, HR 90s. Exam Vital Signs Temp Pulse Resp BP Pulse Ox O2 Del Method O2 Flow Rate 98.0 F 83 17 132/97 H 96 Nasal Cannula 1 04/18/24 08:00 04/18/24 08:18 04/18/24 08:00 04/18/24 08:18 04/18/24 08:00 04/18/24 08:00 04/18/24 08:00 Narrative Exam General: AAOx3, anxious male, multiple tattoos present on his body including his leg back and arm HEENT: Moist mucous membranes, conjunctiva clear, EOMI, PERRLA, pupillary reflex intact bilaterally, poor dentition likely related to tobacco chewing Cardiovascular: S1, S2, radial pulses +2 bilat, RRR Pulmonary: CTAB bilat no cough, no wheezing GI: No tenderness to light or deep palpitation, no guarding, rigidity, rebound tenderness or distension Extremities: No presence of trace or pitting edema in lower extremities bilaterally, dorsalis pedis pulses +2 bilaterally, leg tattoo Neuro: AAOx3, pupillary reflex intact bilaterally resting tremor present Psych: Anxious Objective Labs 04/19/24 05:39 04/19/24 05:39 Labs: Laboratory Results - last 24 hr 04/17/24 04/17/24 04/17/24 10:50 12:48 16:52 WBC 18.9 H RBC 5.04 Hgb 14.4 Hct 43.9 MCV 87 MCH 28.6 MCHC 32.8 RDW Std Deviation 45.1 H Plt Count 221 Neut % (Auto) 80 Lymph % (Auto) 13 [place] % (Auto) 4 Eos % (Auto) 1 Baso % (Auto) 0 Neut # (Auto) 15.2 H Lymph # (Auto) 2.4 [place] # (Auto) 0.8 Eos # (Auto) 0.2 Baso # (Auto) 0.1 Immature Gran # (Auto) 0.19 H Absolute Nucleated RBC 0.00 Immature Gran % 1 H Nucleated RBC % 0 PT 11.1 INR 1.0 APTT 22.4 Sodium 138 Potassium 4.6 Chloride 107 Carbon Dioxide 19.3 L Anion Gap 12 BUN 15 Creatinine 1.5 H Estim Creat Clear Calc 61.3 eGFR 54 L BUN/Creatinine Ratio 10 L Glucose [address] Glu mg/dL 180 H Hemoglobin A1c 7.9 H Calculated Osmolality 292 Calcium 8.6 Corrected Calcium 8.6 Phosphorus Magnesium 1.7 Total Bilirubin 0.5 AST 26 ALT 32 Alkaline Phosphatase 116 Troponin I 0.100 H* 1.712 H* D B-Natriuretic Peptide < 20 Total Protein 6.8 Albumin 4.0 Globulin 2.8 Albumin/Globulin Ratio 1.4 Triglycerides 230 H Cholesterol 107 L LDL Cholesterol, Calc 33 HDL Cholesterol 28 L Cholesterol/HDL Ratio 3.8 L Lipase 41 TSH Ur Collection Type Clean Catch Urine Color Lt-Yellow Urine Clarity Clear Urine pH 6.0 Ur Specific [place] 1.011 Urine Protein 1+ A Urine Glucose (UA) 3+ A Urine Ketones Negative Urine Blood Negative Urine Nitrite Negative Urine Bilirubin Negative Urine Urobilinogen (Auto) Negative Ur Leukocyte Esterase Negative Urine RBC 3 Urine WBC 6 H Ur Squamous Epith Cells < 1 Urine Bacteria Rare Hyaline Casts < 1 Ur Culture Indicated? Not Indicated Urine Opiates Screen Negative Urine Fentanyl Screen Negative Ur Barbiturates Screen Positive A U Amphetamin/Meth Scrn Negative U Benzodiazepines Scrn Negative U Cocaine Metab Screen Negative U Marijuana (THC) Screen Negative Ethyl Alcohol < 3.0 04/17/24 04/18/24 22:47 05:30 WBC 10.9 H D RBC 4.54 Hgb 12.9 L Hct 39.2 L MCV 86 MCH 28.4 MCHC 32.9 RDW Std Deviation 43.4 Plt Count 162 D Neut % (Auto) 74 Lymph % (Auto) 17 [place] % (Auto) 7 Eos % (Auto) 2 Baso % (Auto) 0 Neut # (Auto) 8.1 H Lymph # (Auto) 1.8 [place] # (Auto) 0.7 Eos # (Auto) 0.2 Baso # (Auto) 0.0 Immature Gran # (Auto) 0.05 H Absolute Nucleated RBC 0.00 Immature Gran % 1 H Nucleated RBC % 0 PT 11.3 INR 1.0 APTT Sodium 142 Potassium 4.0 D Chloride 111 H Carbon Dioxide 24.4 Anion Gap 7 BUN 14 Creatinine 1.0 D Estim Creat Clear Calc 92.5 eGFR > 60 BUN/Creatinine Ratio 14 Glucose [address] Glu mg/dL 183 H Hemoglobin A1c 8.0 H Calculated Osmolality 287 Calcium 8.3 Corrected Calcium 8.5 Phosphorus 2.2 L Magnesium 1.9 Total Bilirubin 0.4 AST 21 ALT 29 Alkaline Phosphatase 103 Troponin I 1.766 H* 0.981 H* D B-Natriuretic Peptide Total Protein 6.3 Albumin 3.8 Globulin 2.5 Albumin/Globulin Ratio 1.5 Triglycerides Cholesterol LDL Cholesterol, Calc HDL Cholesterol Cholesterol/HDL Ratio Lipase TSH 0.71 Ur Collection Type Urine Color Urine Clarity Urine pH Ur Specific [place] Urine Protein Urine Glucose (UA) Urine Ketones Urine Blood Urine Nitrite Urine Bilirubin Urine Urobilinogen (Auto) Ur Leukocyte Esterase Urine RBC Urine WBC Ur Squamous Epith Cells Urine Bacteria Hyaline Casts Ur Culture Indicated? Urine Opiates Screen Urine Fentanyl Screen Ur Barbiturates Screen U Amphetamin/Meth Scrn U Benzodiazepines Scrn U Cocaine Metab Screen U Marijuana (THC) Screen Ethyl Alcohol Quality Measures Quality Measures none Assessment & Plan Assessment Current Active Medications: Generic Name Dose Route Start Last Admin Trade Name Freq PRN Reason Stop Dose Admin Acetaminophen 650 mg 04/17/24 15:27 Acetaminophen 325 Mg Tablet PO 05/17/24 15:26 Q6H PRN Fever >100 or pain 1-3 Hydrocodone Bitart/Acetaminophen 1 tab 04/17/24 15:27 Hydrocodone/Apap 5/325 Tablet PO 04/22/24 15:26 Q4HR PRN PAIN SCALE 4-6 (Moderate Aspirin 81 mg 04/18/24 09:00 04/18/24 08:18 Aspirin Ec 81 Mg Tabec PO 05/18/24 08:59 81 mg QDAY FINN Administration Atorvastatin Calcium 40 mg 04/18/24 21:00 Atorvastatin Calcium 20 Mg Tablet PO 05/18/24 20:59 HS FINN Dextrose 25 ml 04/17/24 15:27 Dextrose 50%-Water Inj 50 Ml Syringe IV 05/17/24 15:26 Q15MIN PRN BG 50-70 responsive npo pt Dextrose 50 ml 04/17/24 15:27 Dextrose 50%-Water Inj 50 Ml Syringe IV 05/17/24 15:26 Q15MIN PRN BG <50 OR BG <70 & pt unresponsive Glucagon 1 mg 04/17/24 15:27 Glucagon Inj 1 Mg Vial IM Q15MIN PRN BG <70, and no IV access Heparin Sodium/Dextrose 25,000 unit in 250 mls @ 10.029 mls/hr 04/18/24 07:45 04/18/24 08:18 Heparin In D5w Ivpb IV 05/02/24 07:44 11 units/kg/hr .Q24H FINN 10.029 mls/hr Administration Protocol 11 UNITS/KG/HR Insulin Human Lispro 0 unit 04/17/24 17:00 04/18/24 08:29 Insulin Lispro (Admelog) 1 Unit/0.01 Ml Unit SC 05/17/24 16:59 1 unit AC FINN Administration Protocol Ipratropium [place] 0.5 mg 04/17/24 15:25 Ipratropium Rt 0.5 Mg/ 2.5 Ml Nebu INH 05/17/24 15:24 Q2HR PRN SHORTNESS OF BREATH OR WHEEZE Metoprolol Succinate 50 mg 04/18/24 09:00 04/18/24 08:18 Metoprolol Succinate Xl 25 Mg Tabcr PO 05/18/24 08:59 50 mg QDAY FINN Administration Ondansetron HCl 4 mg 04/17/24 15:27 Ondansetron Inj 2 Mg/Ml Inj 2 Ml IV 05/17/24 15:26 Q6H PRN NAUSEA OR VOMITING Protocol Plan Assessment Tony is a 58-year-old male with a past medical history of [id number] diabetes type 2, previous syncope, panic disorder, hyperlipidemia who is admitted for syncopal episode. #Syncope #History of previous syncope DDx: Hypovolemia, orthostatic hypotension, cardiac arrhythmia, POTS, aortic stenosis, vasovagal, medication side effect Patient says that he has a history of syncope and has randomly passed out before Denies history of sudden cardiac in family Also says that he has seen a electrician helper powerhouse before and has had a negative stress test and a normal Holter Patient does not know exactly what medicines he arms, however he is tested positive for barbiturates Patient does take a number of medicines including some better psych related, could be medicine side effect Patient does seem to be a bit volume depleted in addition to having an MATTIE so hypovolemia could be a cause of this EKG does show sinus tach, compensatory response to hypotension Patient did experience hypotension as low as 60 systolic while in the ER and EMS Was not able to appreciate cardiac murmur on physical exam Patient would likely benefit from loop recorder outpatient Patient most likely yesterday had hypovolemic related syncope However considering history patient would likely benefit from cardiac cath due to patient's risk factors of diabetes hyperlipidemia and previous syncope Initial echo read shows mild dilatation of right ventricle and RA, left ventricle looks fine Will follow up with orthostatic vitals Will follow up with med rec as this could be a contributing factor as a side effect with syncope Plan: ? Cardio consulted, appreciate recs ? Follow-up on official echo read ? Keep magnesium and potassium above 2 and 4 respectively ? Holding on resuming psych meds at this time ? Neurology consult, apprec recs #NSTEMI type II, likely related to demand ischemia, resolved #? CAD DDx: NSTEMI type I vs II Patient denies having chest pain Likely related to demand ischemia, however will continue to trend Denies history of previous cardiac arrest, ischemic heart disease Troponin peaked at 1.76 Due to risk factors including HLD, DM2, previous syncope, there may be a component of ischemic heart disease HEART score: 5 points -> Moderate score risk of major adverse cardiac events in patients w/ chest pain within 6 weeks, however this pt did not have chest pain [place] Risk Score: 9.4% 10-year risk of MN or for this patient, 13% average 10-year risk of MN or Patient likely had NSTEMI type II related to demand ischemia, in addition to patient not having ST changes, however will need to further workup Will do cardiac cath tomorrow Plan: ? Continue heparin drip ? N.p.o. at midnight ? Cardiac cath ? Continue with aspirin and Lipitor 40 mg Hs #MATTIE, resolved DDx: Prerenal, intrinsic, postrenal Likely patient is experiencing prerenal as creatinine is 1.5 baseline seems to be 0.7 Seems to be dehydrated, was given 1 L in ER Cr 1.0 today Plan: ? Encourage oral intake ? Avoid nephrotoxic agents ? Renally dose medicines #Cbd-ovjfimn-[id number] diabetes type 2 A1c 8 We will adjust blood sugar management after cath Plan: ? SSI ? Hypoglycemic protocol in place ? Blood glucose checks with meals #Hyperlipidemia Total 107, LDL 33 Plan: ? Continue with Lipitor 40 mg at bedtime #History of panic disorder #? History of PTSD U tox shows positive barbiturates Will follow-up with med rec Plan: ? Awaiting med rec #Health Maintenance Disposition: Telemetry DVT prophylaxis: Heparin drip GI prophylaxis: Protonix Diet: N.p.o. at midnight CODE STATUS: Full Patient seen and care discussed with my senior resident, Dr. Gómez, and my attending physician, Dr. John Iverson, PGY-1 Attending Provider Attestation/Addendum I reviewed labs, imaging, EKG, home medications and prior available records. Face to face evaluation was performed by me. I have personally examined the patient and discussed assessment and plan with the IM team. I reviewed the resident note and agree with the plan with exceptions as below. Syncope Acute hypotension Non-STEMI MATTIE Leukocytosis, possibly reactive in the setting of dehydration Ordered CT head: Negative for acute changes Hold psych medications Obtain echocardiogram Trend troponin: Uptrending. Discussed with cardiology: Start aspirin and heparin drip. Plan for cardiac catheterization Obtain orthostatic vital signs Consult cardiology given the possible cardiac causes and elevated troponin Consult neurology given the possible neurologic syncope in setting of seizure Monitor kidney function: Creatinine improved. Avoid nephrotoxins. Renally dosed medications Trend WBC: Downtrending
--- NOTE | 2024-04-18 11:13 | PC.SS ---
Addendum entered by Alina Hines 04/18/24 13:53: Patient requested clothing due to his being soiled. Wet End Operator provided L longsleeve shirt, M basketball shorts, and XL briefs at bedside. Original Note: Wet End Operator met with patient at bedside to complete initial assessment. Patient confirmed demographic information. Patient confirmed alt. decision maker is his sibling Stormy Arteaga [phone]. Patient reported being independent with ADL completion and ambulation as well. Pharmacy: [facility] and receives medication through mail. PCP: Dr. Carias. ? Discharge plan: Home, Uber transportation needed at discharge. Alt. Decision maker: Sibling Stormy Arteaga [phone]
[2024-04-18 14:34] LABS: Partial Thromboplastin Time 34.1 Seconds (22.0-36.0)
[2024-04-18] MEDS: HEPARIN SOD INJ 5000 UNIT/ML VIAL 4000 UNIT IV (15:40)
--- NOTE | 2024-04-18 16:10 | PD.RESPRO ---
Documentation for date of: 04/18/24 Subjective Subjective Interval history: 04/18: No acute overnight events patient is seen and examined at bedside currently patient is saturating on room air. He complains of chest pain on the left side that has improved but still feels the pain site which is not radiating. Patient states lately he has been on a lot of stress. pt is informed he will bee to undergo cardiac catherization tomorrow. Risks and benefits have been explained to him and he agrees to undergo procedure. Current blood pressure is 151/113 and HR is 99. coagulation studies are within normal limits. Hgb is 8.0. Troponins trend is 0.100-> 1.712 -> 1.766 -> 0.981. Exam Vital Signs Temp Pulse Resp BP Pulse Ox O2 Del Method O2 Flow Rate 97.0 F 92 19 138/99 H 96 Room Air 1 04/18/24 12:00 04/18/24 14:21 04/18/24 12:00 04/18/24 14:21 04/18/24 12:00 04/18/24 12:00 04/18/24 08:00 Narrative Exam GENERAL: A&Ox3 . Awake, Not in acute distress NEURO: no focal neurological deficits HEENT: Atraumatic, Normocephalic. mucous membranes moist. Eyes open, symmetrical, & clear, poor oral and dentation HEART: Normal Heart Sounds LUNGS: Clear to auscultation with no wheezing or crackles. ABDOMEN: soft, non-distended, non-tender, bowel sounds heard, no guarding or rebound tenderness SKIN: No Rash or ecchymoses EXTREMITIES: No edema, tenderness, able to move all 4 extremities, pedal pulses palpated Objective Labs 04/18/24 05:30 04/18/24 05:30 Labs: Laboratory Results - last 24 hr 04/17/24 04/17/24 04/17/24 10:50 16:52 22:47 WBC RBC Hgb Hct MCV MCH MCHC RDW Std Deviation Plt Count Neut % (Auto) Lymph % (Auto) [place] % (Auto) Eos % (Auto) Baso % (Auto) Neut # (Auto) Lymph # (Auto) [place] # (Auto) Eos # (Auto) Baso # (Auto) Immature Gran # (Auto) Absolute Nucleated RBC Immature Gran % Nucleated RBC % PT INR APTT Sodium Potassium Chloride Carbon Dioxide Anion Gap BUN Creatinine Estim Creat Clear Calc eGFR BUN/Creatinine Ratio Glucose Estimated Ave Glu mg/dL Hemoglobin A1c Calculated Osmolality Calcium Corrected Calcium Phosphorus Magnesium Total Bilirubin AST ALT Alkaline Phosphatase Troponin I 1.712 H* D 1.766 H* Total Protein Albumin Globulin Albumin/Globulin Ratio Triglycerides 230 H Cholesterol 107 L LDL Cholesterol, Calc 33 HDL Cholesterol 28 L Cholesterol/HDL Ratio 3.8 L TSH 04/18/24 04/18/24 05:30 14:11 WBC 10.9 H D RBC 4.54 Hgb 12.9 L Hct 39.2 L MCV 86 MCH 28.4 MCHC 32.9 RDW Std Deviation 43.4 Plt Count 162 D Neut % (Auto) 74 Lymph % (Auto) 17 [place] % (Auto) 7 Eos % (Auto) 2 Baso % (Auto) 0 Neut # (Auto) 8.1 H Lymph # (Auto) 1.8 [place] # (Auto) 0.7 Eos # (Auto) 0.2 Baso # (Auto) 0.0 Immature Gran # (Auto) 0.05 H Absolute Nucleated RBC 0.00 Immature Gran % 1 H Nucleated RBC % 0 PT 11.3 INR 1.0 APTT 34.1 D Sodium 142 Potassium 4.0 D Chloride 111 H Carbon Dioxide 24.4 Anion Gap 7 BUN 14 Creatinine 1.0 D Estim Creat Clear Calc 92.5 eGFR > 60 BUN/Creatinine Ratio 14 Glucose [address] Glu mg/dL 183 H Hemoglobin A1c 8.0 H Calculated Osmolality 287 Calcium 8.3 Corrected Calcium 8.5 Phosphorus 2.2 L Magnesium 1.9 Total Bilirubin 0.4 AST 21 ALT 29 Alkaline Phosphatase 103 Troponin I 0.981 H* D Total Protein 6.3 Albumin 3.8 Globulin 2.5 Albumin/Globulin Ratio 1.5 Triglycerides Cholesterol LDL Cholesterol, Calc HDL Cholesterol Cholesterol/HDL Ratio TSH 0.71 Quality Measures Quality Measures none Assessment & Plan Assessment Current Active Medications: Generic Name Dose Route Start Last Admin Trade Name Freq PRN Reason Stop Dose Admin Acetaminophen 650 mg 04/17/24 15:27 Acetaminophen 325 Mg Tablet PO 05/17/24 15:26 Q6H PRN Fever >100 or pain 1-3 Hydrocodone Bitart/Acetaminophen 1 tab 04/17/24 15:27 Hydrocodone/Apap 5/325 Tablet PO 04/22/24 15:26 Q4HR PRN PAIN SCALE 4-6 (Moderate Aspirin 81 mg 04/18/24 09:00 04/18/24 08:18 Aspirin Ec 81 Mg Tabec PO 05/18/24 08:59 81 mg QDAY FINN Administration Atorvastatin Calcium 40 mg 04/18/24 21:00 Atorvastatin Calcium 20 Mg Tablet PO 05/18/24 20:59 HS FINN Dextrose 25 ml 04/17/24 15:27 Dextrose 50%-Water Inj 50 Ml Syringe IV 05/17/24 15:26 Q15MIN PRN BG 50-70 responsive npo pt Dextrose 50 ml 04/17/24 15:27 Dextrose 50%-Water Inj 50 Ml Syringe IV 05/17/24 15:26 Q15MIN PRN BG <50 OR BG <70 & pt unresponsive Glucagon 1 mg 04/17/24 15:27 Glucagon Inj 1 Mg Vial IM Q15MIN PRN BG <70, and no IV access Heparin Sodium/Dextrose 25,000 unit in 250 mls @ 10.029 mls/hr 04/18/24 07:45 04/18/24 15:41 Heparin In D5w Ivpb IV 05/02/24 07:44 15 units/kg/hr .Q24H FINN 13.676 mls/hr Titration Protocol 11 UNITS/KG/HR Insulin Human Lispro 0 unit 04/17/24 17:00 04/18/24 14:07 Insulin Lispro (Admelog) 1 Unit/0.01 Ml Unit SC 05/17/24 16:59 1 unit AC FINN Administration Protocol Ipratropium [place] 0.5 mg 04/17/24 15:25 Ipratropium Rt 0.5 Mg/ 2.5 Ml Nebu INH 05/17/24 15:24 Q2HR PRN SHORTNESS OF BREATH OR WHEEZE Metoprolol Succinate 50 mg 04/18/24 09:00 04/18/24 08:18 Metoprolol Succinate Xl 25 Mg Tabcr PO 05/18/24 08:59 50 mg QDAY FINN Administration Ondansetron HCl 4 mg 04/17/24 15:27 Ondansetron Inj 2 Mg/Ml Inj 2 Ml IV 05/17/24 15:26 Q6H PRN NAUSEA OR VOMITING Protocol Plan A 58-year-old male with a past medical history of type 2 diabetes mellitus uncontrolled, essential hypertension, hyperlipidemia, anxiety, panic disorder, history of tremors, depression presented to the emergency department for further patient was seen after an episode of syncope. #syncope -pt patient also has a history of previous syncopal episodes, however unable to determine if it is related to dehydration or any cardiac arrhythmias. 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 -Echocardiogram done on 04/17/2024 findings include: Normal LV size and function. Estimated EF 55-60 %. Mildy dilated RV and normal RV systolic function. Trace MR and TR. #Elevated troponins -NSTEMI type I versus type II -Troponins trend is 0.100-> 1.712 -> 1.766 -> 0.981 -Patient does endorse to chest pain, however EKG showing sinus tachycardia with minimal ST depression and no acute ST or T wave changes. -Patient is started on heparin drip -Recommend aspirin statin and beta-heather cardioselective. -Plan is for patient to undergo cardiac catheterization tomorrow to evaluate left and right ventricular function and other wall motion abnormalities. -Recommend aspirin, statin and beta-heather -Will consider starting patient on anticoagulation after cardiac catheterization tomorrow, CT of the head is negative for acute hemorrhage # Acute kidney injury On admission patient's creatinine was 1.5 and patient's baseline is 1.0. Likely prerenal due to dehydration. -Patient was given 2 L of normal saline which has improved kidney function and today's creatinine is 1.0 #Uncontrolled type 2 diabetes -On admission patient's blood glucose levels were 384, and hemoglobin is 8.0. Patient does not take any diabetic medications at home. -Patient is started on insulin sliding scale and hypoglycemia protocol is in place -Recommend strict control of diabetes #Hyperlipidemia #Obesity #Anxiety #Depression #Tremors -Continue management as per primary hospitalist team and other specialists Assessment and plan discussed with my attending physician Dr. Dari Hankins (PGY-1)- Internal medicine resident Attending Provider Attestation/Addendum I have personally seen and examined the patient separately on the above date of service and discussed the plan of care with the resident. I reviewed the resident Dr. Rowdy Hankins consultation progress note and agree with the resident findings and plan in the note above and have also edited the documentation to reflect my findings and plan. Troponins peaked at 1.766. Given the elevated troponins and point risk factors for CAD, patient will benefit from a left heart cardiac catheterization. Patient explained the risk benefits and alternatives of performing a left heart catheterization including the risk of heart attack, stroke and along with the bleeding risk in detail. Patient understands the risks and benefits and agreeable for the procedure. Consent obtained. Will keep patient n.p.o. overnight and plan for LHC in the morning. Heparin drip to be continued for now until 2 hours prior to the procedure continue aspirin statin and beta-heather for now. Paco Chapin M.D. Interventional Cardiology
--- NOTE | 2024-04-18 19:14 | PC.NURSE ---
Hand off given. Was told in report pt is currently on heparin gtt and per off going nurse MD will put hold orders in and consent orders for cath procedure. only order in is NPO at this time. attempted to call hospitalist x2 after report was given for clarification of orders.
[2024-04-18] MEDS: ATORVASTATIN CALCIUM 20 MG TABLET 40 MG PO (20:49)
[2024-04-18] MEDS: HYDROcodone/APAP 5/325 TABLET 1 TAB PO (20:51)
[2024-04-18 22:10] LABS: Partial Thromboplastin Time 53.3 Seconds (22.0-36.0)
--- NOTE | 2024-04-18 23:32 | VVCONSULT_ITS ---
Telemedicine visit statement This visit was conducted with the use of phone visit was obtained on 04/17/24. History of Present Illness History of Present Illness History of present illness: Clovis oLpez is a 58-year-old male with diabetes type 2, syncope, panic disorder, hyperlipidemia who is here for an evaluation of syncope. His last episode was about 10 years ago. He also endorses that he had an episode 1 time in which she fell and passed out while walking on the sidewalk. Denies a history of sudden cardiac or seizures in the family.. He has had a previous cardiac workup including stress test and Holter monitoring which were all negative. He he takes primidone and Topamax for tremors. Workup in the ER: Vital signs: Blood pressure of 82/58, heart rate of 110, afebrile, respiratory rate of 17, and was saturating 89% per EMS. Chemistry profile: sodium of 138, potassium 4.6, BUN/creatinine 15 and 1.5 respectively, glucose 384, hemoglobin 14, white count 19, magnesium 1.7, AST ALT 26 and 32 respectively, troponin 0.1, BMP unremarkable, urine showed +3 glucose and 6 white cells, U tox showed barbiturates. Imaging: Head CT was unremarkable for acute hemorrhage, mass effect or midline shift. Fairly prominent chronic white matter changes. Chest x-ray was negative pulmonary edema or pneumonia. Patient was given IV fluid bolus and dose of aspirin with oxygen and got admitted to telemetry for further workup. Neurology was consulted to evaluate Past Medical History Past Medical History NEUROLOGIC: Positive Transient Ischemic Attacks (TIA) and Multiple Sclerosis (QUESTIONABLE [facility] PER MRI IN 2004?) CARDIAC: Positive Hypertension ENDOCRINE: Positive Diabetes Mellitus Type 2 PSYCHO/SOCIAL: Positive Anxiety Social History SMOKING STATUS: Never smoker SUBSTANCE USE: does not use ALCOHOL: Never TeleMedicine ROS Pertinent Review of Systems Systems Reviewed: All systems reviewed, normal except as documented Meds Home Medications and Allergies Home Medications ?Medication ?Instructions ?Recorded ?Confirmed ?Type metformin 1,000 mg tablet 1,000 mg PO BIDWM Diabetes # 0 tabs 03/14/13 04/18/24 History (Glucophage) cyanocobalamin (vitamin B-12) 500 500 mcg PO .once rola ly 04/18/24 04/18/24 History mcg tablet (Vitamin B-12) primidone PO DAILY 04/18/24 History topiramate .ROUTE 04/18/24 History Allergies Allergy/AdvReac Type Severity Reaction Status Date / Time guaifenesin (From Yanna) Allergy Severe Swelling Verified 04/17/24 10:39 of Lip/Tongue/Throat Virtual exam Vital Signs Temp Pulse Resp BP Pulse Ox O2 Del Method O2 Flow Rate 97.3 F 100 23 H 149/105 H 98 Room Air 1 04/18/24 20:00 04/18/24 20:00 04/18/24 20:00 04/18/24 20:00 04/18/24 20:00 04/18/24 20:00 04/18/24 08:00 Results Labs 04/18/24 05:30 04/18/24 05:30 Labs: Short CBC 04/18/24 Range/Units 05:30 WBC 10.9 H D (3.8-10.6) Thou/mm3 Hgb 12.9 L (13.5-16.0) g/dL Hct 39.2 L (41.0-53.0) % Plt Count 162 D (140-440) Thou/mm3 BMP 04/18/24 05:30 Sodium 142 Potassium 4.0 D Chloride 111 H Carbon Dioxide 24.4 BUN 14 Creatinine 1.0 D Glucose 179 H D Calcium 8.3 Cardiac Enzymes 04/17/24 04/18/24 Range/Units 22:47 05:30 Troponin I 1.766 H* 0.981 H* D (0.0-0.045) ng/mL Liver Function 04/18/24 Range/Units 05:30 Total Bilirubin 0.4 (0.3-1.2) mg/dL AST 21 (0-34) U/L ALT 29 (10-49) U/L Alkaline Phosphatase 103 (46-116) U/L Albumin 3.8 (3.5-5.0) gm/dL Assessment & Plan Problem List (1) Syncopal episodes: Status: Acute Assessment and plan: Follow-up with the MRI brain and EEG to evaluate further. (2) Hypertension: Status: Acute Assessment and plan: Continue with metoprolol (3) Type 2 diabetes mellitus: Status: Acute Assessment and plan: Checking fingerstick glucose and follow sliding scale insulin per protocol.
[2024-04-19] VITALS (14 sets, daily range): BP systolic 123–174; BP diastolic 88–115; PULSE 69–95; RESP 12–18; TEMP 36.1–36.7; O2SAT 94–98; BMI 28.8
[2024-04-19 05:55] LABS: Basophils # (Auto) 0.1 Thou/mm3 (0.0-0.2); Basophils % (Auto) 1 % (0-2.5); Eosinophils # (Auto) 0.3 Thou/mm3 (0.0-0.5); Eosinophils % (Auto) 3 % (0-10); Hematocrit 37.5 % (41.0-53.0); Hemoglobin 12.8 g/dL (13.5-16.0); Immature Granulocytes % (Auto) 1 % (0-0); Immature Granulocytes Auto 0.07 Thou/mm3 (0.00-0.00); Lymphocytes # (Auto) 2.6 Thou/mm3 (1.0-4.8); Lymphocytes % (Auto) 28 % (10-50); Mean Corpuscular HGB Conc 34.1 g/dl (31.0-37.0); Mean Corpuscular Hemoglobin 28.9 pg (25.0-35.0); Mean Corpuscular Volume 85 fL (80-100); Monocytes # (Auto) 0.7 Thou/mm3 (0.0-0.8); Monocytes % (Auto) 7 % (0-12); Neutrophils # (Auto) 5.9 Thou/mm3 (1.8-7.7); Neutrophils % (Auto) 62 % (37-80); Nucleated Red Blood Cell % 0 /100 WBC (0); Platelet Count 185 Thou/mm3 (140-440); RDW Standard Deviation 42.9 fL (35.1-43.9); Red Blood Count 4.43 Miln/mm3 (4.50-5.90); White Blood Count 9.5 Thou/mm3 (3.8-10.6)
[2024-04-19 06:22] LABS: Partial Thromboplastin Time 50.4 Seconds (22.0-36.0); Prothrombin Time 11.4 Seconds (9.0-12.2)
[2024-04-19] MEDS: INSULIN LISPRO (AdmeLOG) 1 UNIT/0.01 ML UNIT SC (07:45)
[2024-04-19 07:50] LABS: Alanine Aminotransferase 26 U/L (10-49); Albumin, Serum 3.9 gm/dL (3.5-5.0); Albumin/Globulin Ratio 1.5 (1.2-2.2); Alkaline Phosphatase 106 U/L (46-116); Anion Gap 9 (7-16); Aspartate Amino Transferase 11 U/L (0-34); BUN/Creatinine Ratio 17 Ratio (12-20); Bilirubin,Total 0.3 mg/dL (0.3-1.2); Blood Urea Nitrogen 17 mg/dL (9-23); Calcium 8.2 mg/dL (8.3-10.6); Calcium (Corrected) 8.3 mg/dL (8.5-10.1); Carbon Dioxide 23.6 mMol/L (20.0-31.0); Chloride 108 mMol/L (98-107); Estimated Creatinine Clearance 92.5 mL/min (>60); Globulin 2.6 gm/dL (2.3-3.5); Glucose 181 mg/dL (74-106); Osmolality,Calculated 287 (275-295); Phosphorous 3.1 mg/dL (2.4-5.1); Potassium 3.7 mMol/L (3.4-5.1); Sodium 141 mMol/L (136-145); Total Protein 6.5 gm/dL (5.7-8.2); eGFR > 60 See Note
[2024-04-19] MEDS: ASPIRIN EC 81 MG TABEC PO (08:16)
--- NOTE | 2024-04-19 09:57 | ESPR_ITS ---
Documentation for date of: 04/19/24 Subjective Subjective Interval history: 04/19: no acute overnight events reported. Pt underwent cardiac catherization this morning. Patient's cardiac catheterization had normal coronaries, normal LVEDP 15 mm hg , normal LVEF 55-60%. As well as EEG reading came back normal with no focal, diffuse or generalized abnormalities were noted on EEG. potassium 3.7 and magnesium 2.6, calcium 8.3. Pt is advised to follow up outpatient with the tanker serviceman [facility]. Exam Vital Signs Temp Pulse Resp BP Pulse Ox O2 Del Method O2 Flow Rate 98.0 F 92 16 174/98 H 97 Room Air 1 04/19/24 08:11 04/19/24 08:11 04/19/24 08:11 04/19/24 08:11 04/19/24 08:11 04/19/24 08:11 04/18/24 08:00 Narrative Exam GENERAL: A&Ox3 . Awake, Not in acute distress NEURO: no focal neurological deficits HEENT: Atraumatic, Normocephalic. mucous membranes moist. Eyes open, symmetrical, & clear, poor oral and dentation HEART: Normal Heart Sounds LUNGS: Clear to auscultation with no wheezing or crackles. ABDOMEN: soft, non-distended, non-tender, bowel sounds heard, no guarding or rebound tenderness SKIN: No Rash or ecchymoses EXTREMITIES: No edema, tenderness, able to move all 4 extremities, pedal pulses palpated Objective Labs 04/19/24 05:39 04/19/24 05:39 Labs: Laboratory Results - last 24 hr 04/18/24 04/18/24 04/19/24 14:11 21:20 05:39 WBC 9.5 RBC 4.43 L Hgb 12.8 L Hct 37.5 L MCV 85 MCH 28.9 MCHC 34.1 RDW Std Deviation 42.9 Plt Count 185 Neut % (Auto) 62 Lymph % (Auto) 28 [place] % (Auto) 7 Eos % (Auto) 3 Baso % (Auto) 1 Neut # (Auto) 5.9 Lymph # (Auto) 2.6 Republic # (Auto) 0.7 Eos # (Auto) 0.3 Baso # (Auto) 0.1 Immature Gran # (Auto) 0.07 H Absolute Nucleated RBC 0.00 Immature Gran % 1 H Nucleated RBC % 0 PT 11.4 INR 1.0 APTT 34.1 D 53.3 H D 50.4 H Sodium 141 Potassium 3.7 Chloride 108 H Carbon Dioxide 23.6 Anion Gap 9 BUN 17 Creatinine 1.0 Estim Creat Clear Calc 92.5 eGFR > 60 BUN/Creatinine Ratio 17 Glucose 181 H Calculated Osmolality 287 Calcium 8.2 L Corrected Calcium 8.3 L Phosphorus 3.1 Magnesium 2.0 Total Bilirubin 0.3 AST 11 ALT 26 Alkaline Phosphatase 106 Total Protein 6.5 Albumin 3.9 Globulin 2.6 Albumin/Globulin Ratio 1.5 Quality Measures Quality Measures none Assessment & Plan Assessment Current Active Medications: Generic Name Dose Route Start Last Admin Trade Name Freq PRN Reason Stop Dose Admin Acetaminophen 650 mg 04/17/24 15:27 Acetaminophen 325 Mg Tablet PO 05/17/24 15:26 Q6H PRN Fever >100 or pain 1-3 Hydrocodone Bitart/Acetaminophen 1 tab 04/17/24 15:27 04/18/24 20:51 Hydrocodone/Apap 5/325 Tablet PO 04/22/24 15:26 1 tab Q4HR PRN Administration PAIN SCALE 4-6 (Moderate Aspirin 81 mg 04/18/24 09:00 04/19/24 08:16 Aspirin Ec 81 Mg Tabec PO 05/18/24 08:59 81 mg QDAY FINN Administration Atorvastatin Calcium 40 mg 04/18/24 21:00 04/18/24 20:49 Atorvastatin Calcium 20 Mg Tablet PO 05/18/24 20:59 40 mg HS FINN Administration Dextrose 25 ml 04/17/24 15:27 Dextrose 50%-Water Inj 50 Ml Syringe IV 05/17/24 15:26 Q15MIN PRN BG 50-70 responsive npo pt Dextrose 50 ml 04/17/24 15:27 Dextrose 50%-Water Inj 50 Ml Syringe IV 05/17/24 15:26 Q15MIN PRN BG <50 OR BG <70 & pt unresponsive Glucagon 1 mg 04/17/24 15:27 Glucagon Inj 1 Mg Vial IM Q15MIN PRN BG <70, and no IV access Heparin Sodium/Dextrose 25,000 unit in 250 mls @ 10.029 mls/hr 04/18/24 07:45 04/19/24 06:00 Heparin In D5w Ivpb IV 05/02/24 07:44 Infused .Q24H FINN Titration Protocol 11 UNITS/KG/HR Insulin Human Lispro 0 unit 04/17/24 17:00 04/19/24 07:45 Insulin Lispro (Admelog) 1 Unit/0.01 Ml Unit SC 05/17/24 16:59 1 unit AC FINN Administration Protocol Ipratropium [place] 0.5 mg 04/17/24 15:25 Ipratropium Rt 0.5 Mg/ 2.5 Ml Nebu INH 05/17/24 15:24 Q2HR PRN SHORTNESS OF BREATH OR WHEEZE Metoprolol Succinate 50 mg 04/18/24 09:00 04/18/24 08:18 Metoprolol Succinate Xl 25 Mg Tabcr PO 05/18/24 08:59 50 mg QDAY FINN Administration Ondansetron HCl 4 mg 04/17/24 15:27 Ondansetron Inj 2 Mg/Ml Inj 2 Ml IV 05/17/24 15:26 Q6H PRN NAUSEA OR VOMITING Protocol Plan A 58-year-old male with a past medical history of type 2 diabetes mellitus uncontrolled, essential hypertension, hyperlipidemia, anxiety, panic disorder, history of tremors, depression presented to the emergency department for further patient was seen after an episode of syncope. #syncope -pt patient also has a history of previous syncopal episodes, however unable to determine if it is related to dehydration or any cardiac arrhythmias. Per patient previous workup with the tanker serviceman including stress test and Holter monitoring was negative. -Echocardiogram done on 04/17/2024 findings include: Normal LV size and function. Estimated EF 55-60 %. Mildy dilated RV and normal RV systolic function. Trace MR and TR. #Elevated troponins -NSTEMI type I versus type II -Troponins trend is 0.100-> 1.712 -> 1.766 -> 0.981 -Patient does endorse to chest pain, however EKG showing sinus tachycardia with minimal ST depression and no acute ST or T wave changes. -Patient is started on heparin drip -Recommend aspirin statin and beta-heather cardioselective. -Recommend aspirin, statin and beta-heather -Pt underwent cardiac catherization on 04/19/24, and findings were normal coronaries. normal LVEDP 15 mm hg normal LVEF 55-60% -follow up [facility] with [facility] # Acute kidney injury- imrproved On admission patient's creatinine was 1.5 and patient's baseline is 1.0. Likely prerenal due to dehydration. -Patient was given 2 L of normal saline which has improved kidney function and today's creatinine is 1.0 #Uncontrolled type 2 diabetes -On admission patient's blood glucose levels were 384, and hemoglobin is 8.0. Patient does not take any diabetic medications at home. -Patient is started on insulin sliding scale and hypoglycemia protocol is in place -Recommend strict control of diabetes #Hyperlipidemia #Obesity #Anxiety #Depression #Tremors -Continue management as per primary hospitalist team and other specialists Assessment and plan discussed with my attending physician Dr. Dari Hankins (PGY-1)- Internal medicine resident Attending Provider Attestation/Addendum I have personally seen and examined the patient separately on the above date of service and discussed the plan of care with the resident. I reviewed the resident Dr. Rowdy Hankins consultation progress note and agree with the resident findings and plan in the note above and have also edited the documentation to reflect my findings and plan. Patient doing well today and did not have any complaints. Left heart cardiac catheterization was performed today because of the NSTEMI with a peak troponin of 1.76 which showed normal coronaries without any significant coronary obstruction. Normal LVEDP of 15 mmHg as well as normal LVEF around 60 to 65%. No clear etiology was found to have further syncope and is mostly secondary to vasovagal syncope from dehydration as noted previously in the setting of high blood sugars and uncontrolled diabetes mellitus and poor oral intake. Patient will need further workup of the syncope as outpatient which can include long- term Holter monitoring, loop recorder and eventually a tilt table test. Patient recommended to follow-up with cardiology and he apparently goes to the [facility] for his regular care. Recommended to follow-up with [facility] cardiology or to follow-up with me in the clinic if the [facility] authorizes his visits. Paco Chapin M.D. Interventional Cardiology
[2024-04-19] MEDS: METOPROLOL SUCCINATE XL 25 MG TABCR 50 MG PO (12:53)
--- NOTE | 2024-04-19 14:00 | ESOP_ITS ---
Cardiac Cath Procedure Procedure Name Date of procedure: 04/19/2024 OVEN PRESS TENDER: Paco Chapin MD PROCEDURE PERFORMED: 1. Left heart cardiac catheterization including right, left coronary angiograms and left ventriculogram 2. Ultrasound-guided access of the right radial artery 3. Conscious sedation for 30 minutes. Procedure Narrative HISTORY AND INDICATIONS: A 58-year-old male with a past medical history of type 2 diabetes mellitus uncontrolled, essential hypertension, hyperlipidemia, anxiety, panic disorder, history of tremors, depression presented to the emergency department for further evaluation after an episode of syncope. Troponins were elevated during the admission and peaked around 1.76. Patient did have significant risk factors for CAD including essential hypertension type 2 diabetes mellitus as well as hyperlipidemia and also family history of heart disease and patient was recommended left heart cardiac catheterization for further evaluation. Patient was explained the risk benefits and alternatives of performing a left heart cardiac catheterization including the risk of bleeding, heart attack, stroke and in detail and the agreeable for the procedure. Consent signed, placed in the chart and H&P updated. DESCRIPTION OF PROCEDURE: The patient was brought to the cardiac catheterization lab and all asceptic precautions were followed. Patient was given 1 Mg of Versed and 50 mcg of fentanyl for moderate conscious sedation. 2 mL of lidocaine was given in the right wrist. The right radial artery was accessed via the ultrasound guidance as well as micropuncture technique. A 6 Filipino glide sheath was introduced. We then used a 5 Filipino TIG 4 catheter to perform the left and right coronary angiograms as well as a left ventriculogram which showed the following findings. 1. Left ventricular ejection fraction was normal at 60 to 65% without any regional wall motion abnormalities. LVEDP was normal at 15 mmHg. There was no significant transvalvular aortic gradient. 2. Right dominant circulation 3. Left main artery is a large-caliber vessel without any significant stenosis. 4. LAD is a large sized artery with a medium size diagonal and without show any significant disease. 5. LCx is a large sized artery with medium OM1 and small OM2 without any significant disease. 6. RCA is a large artery with medium RPDA and RPL without any significant disease. A radial band was used to achieve the hemostasis of the right radial artery access. Patient will be monitored in the cardiac technician plant and maintenance for the next 2 to 3 hours and will be discharged home later today if hemodynamically stable. Complications: None Specimens: None Blood loss: Estimated 5-10 ml Summary/findings: 1. NSTEMI with peak troponin of 1.76-[facility] showed normal coronaries without any angiographically significant obstruction. 2. LVEF was normal at 60-65% and normal LVEDP of 15 mmHg. No transvalvular aortic gradient. Recommendations: 1. Recommended aggressive risk factor modification with aggressive control of diabetes mellitus and aggressive medical treatment with aspirin and statin 2. Recommended no lifting more than 5 pounds for next 7-10 days and follow up in my office in 7 days the supervisor ore dressing at [place] where he follows up regularly. Paco Chapin MD Interventional Cardiology.
--- NOTE | 2024-04-19 14:29 | PC.SS ---
Rounding: Pending MRI-Neuro reccs poss late DC. Will need [employer] transport
[2024-04-19] MEDS: IBUPROFEN TAB 600 MG TABLET PO (14:38)
--- NOTE | 2024-04-19 15:33 | ESDS_ITS ---
<Statement entered by Alan Gómez MD - 04/19/24 18:41> Patient was examined with the team including attending physician. Note reviewed, I agree with the discharge plan as documented. - Alan Gómez M.D. PGY2 Planned Discharge Date 04/19/24 DS: Providers Provider Date of admission: 04/17/24 15:25 Primary care physician: Physician No Primary/Family Admitting Provider: Remy Lopez MD Attending Provider on Admission: Remy Lopez MD Consults: 04/17/24 15:30 Consult to Cardiology Stat Comment: Syncope Consulting Provider: Paco Chapin 04/17/24 16:04 Consult to Neurology / Tele-Neurology Routine Comment: Consulting Provider: Bradley López Attending Provider on DC: Remy Lopez MD Discharging Provider: Remy Lopez MD DS: Diagnosis Problem List Completed Was Problem List Reviewed/Reconciled?: Yes Hospital Course Hospital Course Hospital course: Tony is a 58-year-old male with a past medical history of [id number] diabetes type 2, previous syncope, panic disorder, hyperlipidemia who was admitted to [facility] on 04/17/2024 for an evaluation of syncope s/p mechanical fall which patient also had L heart cardiac catherization. Pt had reported having some hx previous syncopal episodes in the past, however they have not occurred for a while. He did endorse saying a previous cardiac workup including cardiac stress test and holter monitoring in which he said were both were negative. Pt see's physicians at the [facility]. He came to the ED with a blood pressure of 82/58, heart rate of 110, afebrile, respiratory rate of 17, and was saturating 89% per EMS. She was worked up and was found to have sodium of 138, potassium 4.6, BUN/creatinine 15 and 1.5 respectively, glucose 384, hemoglobin 14, white count 19, magnesium 1.7, AST ALT 26 and 32 respectively, troponin 0.1, BMP unremarkable, urine showed +3 glucose and 6 white cells, U tox showed barbiturates. Head CT was unremarkable for acute hemorrhage, mass effect or midline shift. Chest x-ray was negative pulmonary edema or pneumonia. EKG did show sinus tachycardia rate of 109. He was put on oxygen mask, given ASA 325, 1 L bolus. Medicine was consulted and patient was admitted to floors. While on the floors, pt's troponin was continued to be checked and it peaked at 1.766. Cardiology, Dr. Chapin, was consulted, who recommended pt to undergo cardiac cath given risk factors for CAD. Pt had echo done which showed normal LV, EF 55-60% and mild dilated RV with normal RV systolic function. Pt then had cardiac cath done which showed normal coronaries, and LVEDP 15 mmHg. Pt was then recommended to continue to take ASA and to follow up cardiology outpatient. There was a concern for possible psych meds contributing to patient's syncope, however, we never were able to reconcile all of patient's meds beside topimax which was not started back up. Orthostatics seemed to also be unremarkable as well while done. Pt may have some underlying arrhythmia, but will need to undergo loop recorder for intermediate for further management and we recommend this to occur outpatient with Cardiology. If you don't have a PCP, please follow up with me Dr. Iverson, or any one of my colleagues (My schedule will be ) [facility], [place] [address]. Otherwise, follow up with your PCP within one week Follow up with Dr. Chapin, lead principal technical architect, within one week upon D/[place] [place] [id number]. Call to make an appointment. Take aspirin 81 mg everyday Take Losartan 50 mg, do not take if your systolic blood pressure is below 100 Recommend getting blood pressure cuff to measure blood presure everyday Take Ibuprofen for pain, do not exceed 1g in one day Take Folic acid for one month Take Yohan armas, PCP to reeavluate if this is a medicine you will continue to take for diabetes #Syncope #History of previous syncope #NSTEMI type II, likely related to demand ischemia, resolved #CAD #MATTIE, resolved #[id number] diabetes type 2 #Hyperlipidemia #History of panic disorder #? History of PTSD Patient seen and care discussed with my senior resident, Dr. Gómez , and my attending physician, Dr. John Iverson, PGY-1 Time Spent with Patient Time attestation: Total time spent providing and/or coordinating discharge services: Time spent: Greater than 30 minutes Exam Vital Signs Temp Pulse Resp BP Pulse Ox O2 Del Method O2 Flow Rate 97.9 F 83 16 145/115 H 96 Room Air 1 04/19/24 10:12 04/19/24 12:53 04/19/24 12:00 04/19/24 12:53 04/19/24 12:00 04/19/24 12:00 04/18/24 08:00 Narrative Exam General: AAOx3, anxious male, multiple tattoos present on his body including his leg back and arm HEENT: Moist mucous membranes, conjunctiva clear, EOMI, PERRLA, pupillary reflex intact bilaterally, poor dentition likely related to tobacco chewing Cardiovascular: S1, S2, radial pulses +2 bilat, RRR Pulmonary: CTAB bilat no cough, no wheezing GI: No tenderness to light or deep palpitation, no guarding, rigidity, rebound tenderness or distension Extremities: No presence of trace or pitting edema in lower extremities bilaterally, dorsalis pedis pulses +2 bilaterally, leg tattoo Neuro: AAOx3, pupillary reflex intact bilaterally resting tremor present Psych: Anxious Discharge Plan Plan Patient Disposition: HOME (Self Care) Patient condition on transfer: Stable Care Plan Goals: Continue home medications as prescribed. Follow up with cardiology, neurology and PCP within 2 weeks. Prescriptions/Referrals Prescriptions/Med Rec: New aspirin 81 mg tablet,chewable 81 mg PO QDAY Qty: 30 0RF Januvia 25 mg tablet 25 mg PO QDAY Qty: 30 0RF losartan 50 mg tablet 50 mg PO QDAY Qty: 30 0RF folic acid 1 mg tablet 1 mg PO QDAY Qty: 30 0RF Continued metformin [Glucophage] 1,000 MG tablet 1,000 mg PO BIDWM Qty: 0 lorazepam 1 mg tablet 1 mg PO QDAY PRN (Reason: anxiety) Qty: 4 0RF cyanocobalamin (vitamin B-12) [Vitamin B-12] 500 mcg tablet 500 mcg PO .once daily topiramate .ROUTE primidone PO DAILY Referrals: No Primary/Family,Physician [Primary Care Provider] - Patient/Caregiver Discharge Instructions Other Discharge Activity Instructions:: If you don't have a PCP, please follow up with me Dr. Iverson, or any one of my colleagues (My schedule will be ) [facility], [address] [place] [id number]. Otherwise, follow up with your PCP within one week Follow up with Dr. Chapin, lead principal technical architect, within one week upon D/C. [address] [place] [id number]. Call to make an appointment. Take aspirin 81 mg everyday Take Losartan 50 mg, do not take if your systolic blood pressure is below 100 Recommend getting blood pressure cuff to measure blood presure everyday Take Ibuprofen for pain, do not exceed 1g in one day Take Folic acid for one month Take new medicine, Yohan, PCP to reeavluate if this is a medicine you will continue to take for diabetes Education Materials: Causes of Syncope Print Language: Khmer Stand Alone Forms: Kathleen Award Info., Patient Portal Info Letter Discharge Order Discharge Orders: Discharge (Routine); Ordered 04/19/24 Ordered By: Alexandra Iverson Quality Discharge Quality Measures VTE prophylaxis (Heparin) Attestestation MD Attestation I reviewed labs, imaging, EKG, home medications and prior available records. Face to face evaluation was performed by me. I have personally examined the patient and discussed assessment and plan with the IM team. I reviewed the resident note and agree with the plan with exceptions as below. Syncope Acute hypotension Non-STEMI MATTIE Leukocytosis, possibly reactive in the setting of dehydration Ordered CT head: Negative for acute changes. Discussed with neurology: Okay for outpatient MRI Obtain echocardiogram: Showed preserved EF Trend troponin: Peaked discussed with cardiology: Start aspirin and heparin drip. S/p cardiac catheterization that showed no obstructive CAD. Okay to discharge from cardiology standpoint. Follow-up with cardiology as outpatient Obtain orthostatic vital signs: Possibly positive. Consult cardiology given the possible cardiac causes and elevated troponin Consult neurology given the possible neurologic syncope in setting of seizure: Unlikely seizures. EEG is normal Monitor kidney function: Creatinine improved. Avoid nephrotoxins. Renally dosed medications Trend WBC: Downtrending Time spent is 40 minutes. More than 50% of the time was spent on patient education and coordination of care.
== END 2024-04-19 16:30 | disposition home or self-care (01) | DRG 281 ==
LOC: SERX 15:19 → SERHOLD 15:47 → S2NX 18:08
PROVIDERS: Internal Medicine Cardiovascular Disease; Admitting Provider Student in an Organized Health Care Education/Training Program; Emergency Provider Emergency Medicine; Visit Provider Student in an Organized Health Care Education/Training Program
PROC: 4A023N7 Measurement of Cardiac Sampling and Pressure, Left Heart, Percutaneous Approach (ICD-10-PCS; principal; 2024-04-19 09:00)
DX: I25.10 Atherosclerotic heart disease of native coronary artery without angina pectoris (principal); N17.9 Acute kidney failure, unspecified; I21.A1 Myocardial infarction type 2; R55 Syncope and collapse; I95.9 Hypotension, unspecified; E11.65 Type 2 diabetes mellitus with hyperglycemia; F41.0 Panic disorder [episodic paroxysmal anxiety]; E86.1 Hypovolemia; F32.A Depression, unspecified; I11.9 Hypertensive heart disease without heart failure; E78.00 Pure hypercholesterolemia, unspecified; E86.0 Dehydration; E66.9 Obesity, unspecified; R25.1 Tremor, unspecified; F43.10 Post-traumatic stress disorder, unspecified; F17.210 Nicotine dependence, cigarettes, uncomplicated; W19.XXXA Unspecified fall, initial encounter; Z79.84 Long term (current) use of oral hypoglycemic drugs; Z11.52 Encounter for screening for COVID-19; Z86.73 Personal history of transient ischemic attack (TIA), and cerebral infarction without residual deficits; Z79.899 Other long term (current) drug therapy; Z68.28 Body mass index [BMI] 28.0-28.9, adult
CPT/HCPCS: 36415; 70450; 71045; 80053; 80061; 80307; 80320; 81001; 83036; 83690; 83735; 83880; 84100; 84443; 84484; 85025; 85610; 85730; 87400; 87811; 93306; 95816; 99152; A4649; C1887; C1894; J0171; J0461; J1643; J1644; J1815; J2250; J2310; J2371; J2470; J3010; J3475; J3490; J7030; Q9967; A9270; G0480; J2305